=== PATIENT | female | born 1980 | race Caucasian/White ===

== ENCOUNTER 2016-09-24 18:01 | Emergency (ER) | payer OTHER ==
--- NOTE | 2016-09-24 20:48 | ED ORDER SUMMARY ---
..... Patient: GLORIA LI OrderSheet [facility] VisitID: [id number] [address] [place] [address] 36y, F Registration Date/Time: 09/24/2016 ORDER SHEET Weight: 56.6 kg (stated) Allergies: Penicillin GENERAL ORDERS: CBC w Diff Urgent (18:22 09/24/2016 HBivens A.R.N.P.) (Ack 18:23 KHoerner) (19:47 JBullard R.N.) BMP Urgent (18:22 09/24/2016 HBivens A.R.N.P.) (Ack 18:23 KHoerner) (19:47 JBullard R.N.) Serum Qualitative Urgent (18:22 09/24/2016 HBivens A.R.N.P.) (Ack 18:23 KHoerner) (19:47 JBullard R.N.) EKG - ER Stat (18:22 09/24/2016 HBivens A.R.N.P.) (Ack 18:23 KHoerner) (19:23 CHagerty ER Management Trainee Marketing) Vitals (20:45 09/24/2016 HBivens A.R.N.P.) (21:08 JBullard R.N.) MEDICATION ORDERS: - (Reglan 10mg im stat) (18:21 09/24/2016 HBivens A.R.N.P.) (Cancelled: Other19:07 HBivens A.R.N.P.) IV FLUIDS: IV NS : initial bolus 1000 mL (1000 mL/hr), then none - (NOW) (18:21 09/24/2016 HBivens A.R.N.P.) (19:47 JBullard R.N.) Toradol IV 30 mg (NOW) (18:09/24/2016 HBivens A.R.N.P.) (19:48 JBullard R.N.) Benadryl IV 25 mg (NOW) (18:21 09/24/2016 HBivens A.R.N.P.) (19:48 JBullard R.N.) IV Saline Lock (18:22 09/24/2016 HBivens A.R.N.P.) (19:47 Ailin Dietrich.N.) Reglan IV 10 mg (NOW) (19:07 09/24/2016 HBivens A.R.N.P.) (19:47 Ailin Dietrich.N.) ORDER SHEET NOTES: [Electronically signed by Ketan Pat R.N. (21:30 09/24/2016)] [Electronically signed by Kelsey MorrellRJuliaNJuliaPJulia (21:56 09/24/2016)] [Electronically locked/signed by Ketan Pat R.N. (21:30 09/24/2016)]
--- NOTE | 2016-09-24 20:48 | ED ORDER SUMMARY ---
..... Patient: GLORIA LI OrderSheet [facility] VisitID: [id number] [address] [place] [address] 36y, F Registration Date/Time: 09/24/2016 ORDER SHEET Weight: 56.6 kg (stated) Allergies: Penicillin GENERAL ORDERS: CBC w Diff Urgent (18:22 09/24/2016 HBivens A.R.N.P.) (Ack 18:23 KHoerner) (19:47 JBullard R.N.) BMP Urgent (18:22 09/24/2016 HBivens A.R.N.P.) (Ack 18:23 KHoerner) (19:47 JBullard R.N.) Serum Qualitative Urgent (18:22 09/24/2016 HBivens A.R.N.P.) (Ack 18:23 KHoerner) (19:47 JBullard R.N.) EKG - ER Stat (18:22 09/24/2016 HBivens A.R.N.P.) (Ack 18:23 KHoerner) (19:23 CHagerty 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) Vitals (20:45 09/24/2016 HBivens A.R.N.P.) (21:08 JBullard R.N.) MEDICATION ORDERS: - (Reglan 10mg im stat) (18:21 09/24/2016 HBivens A.R.N.P.) (Cancelled: Other19:07 HBivens A.R.N.P.) IV FLUIDS: IV NS : initial bolus 1000 mL (1000 mL/hr), then none - (NOW) (18:21 09/24/2016 HBivens A.R.N.P.) (19:47 JBullard R.N.) Toradol IV 30 mg (NOW) (18:09/24/2016 HBivens A.R.N.P.) (19:48 JBullard R.N.) Benadryl IV 25 mg (NOW) (18:21 09/24/2016 HBivens A.R.N.P.) (19:48 JBullard R.N.) IV Saline Lock (18:22 09/24/2016 HBivens A.R.N.P.) (19:47 Ailin Dietrich.N.) Reglan IV 10 mg (NOW) (19:07 09/24/2016 HBivens A.R.N.P.) (19:47 Ailin Dietrich.N.) ORDER SHEET NOTES: [Electronically signed by Ketan Pat R.N. (21:30 09/24/2016)] [Electronically signed by Kelsey MorrellRJuliaNJuliaPJulia (21:56 09/24/2016)] [Electronically locked/signed by Ketan Pat R.N. (21:30 09/24/2016)]
--- NOTE | 2016-09-24 20:48 | ED CLINICAL REPORT ---
Clinical Report - Physicians/Mid Levels [facility] [address] [place] [address] 09/24/2016 18:02 Patient: GLORIA LI Time Seen: 18:08; upon arrival, initial patient contact, initial documentation, patient care assumed. Arrived- By private vehicle. Historian- patient. HISTORY OF PRESENT ILLNESS Is still present. Chief Complaint: HEADACHE. This started about 4 hours ago. It is described as similar to previous headaches, "pain" and sharp. Located in the right temporal, frontal and left temporal region and region of the right eye and left eye. Located in the facial region. No neck pain. At its maximum, severity described as severe. When seen in the E.D., severity described as severe. Modifying factors: worsened by bright light. The patient has had mild photophobia of the right eye and left eye. There has been no eye redness or discharge, matting or foreign body sensation. She has had nausea. She has had vomiting. The vomiting has occurred several times. No bilious emesis, feculent emesis, blood-tinged emesis, coffee-grounds emesis or frankly bloody emesis. No unusually dark emesis. No preceding symptoms, blurred vision, numbness or weakness. 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 No recent travel. Similar symptoms previously: Chronically, as bad. Recent medical care: Not recently seen/assessed. REVIEW OF SYSTEMS No fever, sinus pressure, ear pain, sore throat or head injury. No chest pain or difficulty breathing. All systems otherwise negative, except as recorded above. PAST HISTORY See nurses notes. PROBLEMS: Mastitis. Pharyngitis. UTI - Urinary Tract Infection. Suicide Attempt. Mental Illness. MRSA Infection. Drug Poisoning. LNMP - Last Normal Menstrual Period. Depression. Anxiety Reaction. Bipolar Disorder. Migraine Headache. Ectopic . --18:12 Page Shin, RJuliaN. ADDITIONAL SURGERIES: Breast Augmentation. Dilatation & Curettage. --18:12 Page Shin R.N. SOCIAL HISTORY Light tobacco smoker. No alcohol use or drug use. No recent travel. Is a local resident. FAMILY HISTORY Negative. ADDITIONAL NOTES The nursing notes have been reviewed with agreement regarding the chief complaint, HPI, ROS, PMH and patient medications and allergies. PHYSICAL EXAM Vital Signs: 09/24/2016 18:10 BP: 139/89. HR: 137. RR: 16. O2 saturation: 99%. Temp: 98.3 F. Pain level now: 04/12. Have been reviewed as abnormal and appear to be correct. Blood pressure normal. Tachycardic. Respiratory rate normal. Temperature normal. Oxygen saturation normal. Appearance: Alert. No acute distress. Eyes: Pupils equal, round and reactive to light. Eyes normal inspection. ENT: Ears normal. Nose normal. Pharynx normal. Neck: Normal inspection. Neck supple. CVS: Heart rate / rhythm abnormal. Tachycardia (ventricular rate = 140). Heart sounds normal. Pulses normal. Respiratory: No respiratory distress. Breath sounds normal. Back: Normal inspection. Skin: Skin warm and dry. Normal skin color. No rash. Normal skin turgor. Extremities: Extremities exhibit normal ROM. No lower extremity edema. Neuro: Oriented X 3. Alert. Mood/affect normal. Speech normal. Cranial nerves normal (as tested). No cerebellar findings. No motor deficit. No sensory deficit. LABS, X-RAYS, AND EKG EKG: EKG time: (1919). No acute process. No acute ischemia. Normal EKG. Regular narrow-complex tachycardia (111). Sinus tachycardia. Normal EKG. The study has been interpreted contemporaneously by me (and dr gonzalez). Interpretation time: 1919. Laboratory Tests: Serum Qualitative: (MISSAEL: 09/24/2016 19:37) ( MsgRcvd 09/24/2016 20:29) Final results Test Result Flag Units (Reference) , SERUM NEGATIVE CBC w Diff: (MISSAEL: 09/24/2016 19:37) ( MsgRcvd 09/24/2016 20:16) Final results Test Result Flag Units (Reference) WHITE BLOOD COUNT 10.4 K/uL (4.5-11.5) RED BLOOD COUNT 4.10 M/uL (4.00-5.20) HEMOGLOBIN 12.8 gm/dL (12.0-16.0) HEMATOCRIT 37.7 % (36.0-46.0) MEAN CELL VOLUME 92 fL (80-100) MEAN CORPUSCULAR HGB 31 pg (26-34) MEAN CORPUSCULAR HGB CONC 34 g/dL (31-37) RED CELL DISTRIBUTION WIDTH 14.1 % (11.6-14.8) PLATELET COUNT 272 K/uL (150-400) NEUTROPHIL % 53.3 % (50-75) LYMPH % 39.7 % (25-40) MONO % 5.1 % (3-14) EOSINOPHIL % 1.6 % (0-4) BASOPHIL % 0.3 % (0-2) BMP: (MISSAEL: 09/24/2016 19:37) ( MsgRcvd 09/24/2016 20:27) Final results Test Result Flag Units (Reference) GLUCOSE 86 mg/dL (70-110) BUN 7 mg/dL (7-18) CREATININE 0.7 mg/dL (0.6-1.3) Estimated GFR >60 mL/min Estimated GFR- >60 mL/min Note: Persistent reduction over 3 months in eGFR<60 mL/min/1.73 m2 defines CKD. Patients with eGFR values>=60 mL/min/1.73 m2 may also have CKD if evidence ofpersistent proteinuria. Additional information may be foundat www.kidney.org. SODIUM 141 mmol/L (136-145) POTASSIUM 3.6 mmol/L (3.5-5.1) CHLORIDE 105 mmol/L (98-107) CARBON DIOXIDE 27 mmol/L (21-32) CALCIUM 8.3 L mg/dL (8.5-10.1) . PROGRESS AND PROCEDURES Course of Care: 19:55 09/24/16. pt has jorden for frequent ambien and xanax rx, consistently every month, see report for full details pt stated she felt much better and thanked me for the care. Patient counseled in person regarding the patient's stable condition, test results and diagnosis. 2042. Differential Diagnosis: I considered migraine, subarachnoid hemorrhage, intracranial bleed, vascular malformation, cerebral aneurysm, vascular dissection, vasculitis, temporal arteritis, encephalitis, brain abscess, sinusitis, influenza, viral syndrome, carbon monoxide exposure, hypoglycemia and trigeminal neuralgia as a possible cause of headache in this patient. This is a partial list of diagnoses considered. Other possible considerations: afib, aflutter, tachycardia. Above considerations are based on history, physical exam and laboratory data. Differential diagnosis was discussed with patient. Disposition: Discharged home in good and improved condition (20:48). Condition: good and stable. CLINICAL IMPRESSION Acute, poorly controlled headache. INSTRUCTIONS Warnings: GENERAL WARNINGS: Return or contact your physician immediately if your condition worsens or changes unexpectedly, if not improving as expected, or if other problems arise. SPECIFICALLY, return if you develop fever, vomiting, numbness, weakness, difficulty thinking, visual disturbances, fainting or extreme fatigue. Prescription Medications: Zofran 4 mg: Take 1 orally every six hours as needed for nausea/vomiting. Dispense ten (10). No refills. Substitution is permissible. Fioricet: Take 1-2 orally every 4 hours as needed for headache. Dispense twenty (20). No refills. Substitution is permissible. Follow-up: Follow up with your doctor in about three days as needed. Call for an appointment. Summary of care provided to patient. Understanding of the discharge instructions verbalized by patient. (Electronically signed by Kelsey Morrell A.R.N.P. 09/24/2016 21:56)
--- NOTE | 2016-09-24 20:48 | ED NURSING NOTES ---
Clinical Report - Nurses [facility] [address] [place] [address] 09/24/2016 18:02 [id number] Triage time 18:09 Sep 24 2016. Acuity: LEVEL 4. Chief Complaint: (Pressure behind eyes, nausea/Vomiting). 18:17 09/24/16. SEPSIS SCREEN: Sepsis Screen. Negative (no infection suspected/documented). LIZZIE COMA SCORE: [place] Coma Scale: 15- eyes open spontaneously (4); best verbal response- oriented x 4 (5); best motor response- obeys commands (6). --18:17 Page Shin R.N. 18:10 09/24/16. BP: 139/89 (regular adult cuff) taken on the left arm, while sitting. HR: 137. RR: 16. O2 saturation: 99% on room air. Temp: 98.3 F (oral). Pain level now: 04/12. --18:17 Page Shin R.N. Weight: 56.6 kg stated. Height/Length: 62 inches Per Patient. BMI: 22.8. --18:13 Page Shin R.N. Medications LaMICtal Oral. --18:12 Page Shin R.N. Imitrex Oral (Tablet 100 mg) 1 tablet, PRN. --18:12 Page Shin R.N. Allergies Penicillin. --18:12 Page Shin R.N. History Historian: patient. Accompanied by family. Primary physician (NI PAYAN). This started just prior to arrival Imitrex 100mg x3. Onset. (4 hours ago). She has had nausea and vomiting. PAST MEDICAL HX: Headaches. Immunizations: up-to-date. Last normal menstrual period- Sep 24, 2016. SOCIAL HX: Current every day light tobacco smoker- less than 1/2 a pack per day. No alcohol use or drug use. ABUSE ASSESSMENT: No report of abuse. FALL RISK ASSESSMENT: Fall risk assessment completed. No fall risk identified. NUTRITIONAL RISK ASSESSMENT: The nutritional risk assessment revealed no deficiencies. FUNCTIONAL ASSESSMENT: Functional assessment: no impairments noted. LEARNING NEEDS ASSESSMENT: The learning needs assessment revealed no barriers. SKIN INTEGRITY ASSESSMENT: Skin integrity risk assessment completed. No skin integrity risk identified. --18:17 Page Shin R.N. PROBLEMS: Mastitis. Pharyngitis. UTI - Urinary Tract Infection. Suicide Attempt. Mental Illness. MRSA Infection. Drug Poisoning. LNMP - Last Normal Menstrual Period. Depression. Anxiety Reaction. Bipolar Disorder. Migraine Headache. Ectopic . --18:12 Page Shin R.N. ADDITIONAL SURGERIES: Breast Augmentation. Dilatation & Curettage. --18:12 Page Shin R.N. Interventions ID band on patient. To treatment room. --18:17 Page Shin R.N. PHYSICAL ASSESSMENT 18:17 09/24/16. Ambulatory to room. GENERAL / NEURO / PSYCH: Appears in no acute distress. --18:17 Page Shin R.N. NURSING PROGRESS NOTES 18:09/24/16. Head of bed elevated. Reassurance given. Lights dimmed. Two patient identifiers checked. Call light placed in reach. Side rails up x 1. Bed placed in lowest position. Brakes of bed on. Patient ready for evaluation- chart flagged. --18:17 Page Shin R.N. 19:22 09/24/16. Care transferred and report given (Ketan). --19:22 Page Shin R.N. EKG time: (1919). EKG was ordered, performed by a tech and shown to the ED physician. --19:24 Samy Atkinson, ER Industrial Manufacturing Technician 19:40 09/24/2016 Site #1 started via IV in the left hand with an 22g angiocath, with aseptic technique and good blood return; one attempt. Saline lock flushed with 10 mL saline. --19:43 Yamini Richardson R.N. 19:47 09/24/2016 Started bag #1 1000 mL IV Fluids IV NS (Saline); bolus of 1000 mL wide open via site #1. Allergies verified and confirmed 5 rights. IV patency established. IV site checked: no pain, redness, or swelling. IV flushed thoroughly pre- and post-medication administration. --19:47 Ketan Pat R.N. 19:47 09/24/2016 Reglan (Metoclopramide HCl) IVP 10 mg given. via site #1. Allergies verified and confirmed 5 rights. IV patency established. IV site checked: no pain, redness, or swelling. IV flushed thoroughly pre- and post-medication administration. --19:47 Ketan Pat R.N. 19:48 09/24/2016 Benadryl (DiphenhydrAMINE HCl) IVP 25 mg given. via site #1. Allergies verified, confirmed 5 rights and sedative warning given to the patient. IV patency established. IV site checked: no pain, redness, or swelling. IV flushed thoroughly pre- and post-medication administration. --19:48 Ketan Pat R.N. 19:48 09/24/2016 Toradol IVP 30 mg given. via site #1. Allergies verified and confirmed 5 rights. IV patency established. IV site checked: no pain, redness, or swelling. IV flushed thoroughly pre- and post-medication administration. --19:48 Ketan Pat R.N. DISPOSITION / DISCHARGE Departure time: 2129. Condition at departure: improved. No learning barriers present. Discharge instructions provided and reviewed with the patient. Reviewed warnings. Reviewed medication(s). Treatments reviewed. Reviewed referrals. Patient verbalized understanding. Written instructions provided in Qatari. The patient was discharged by the physician animal assistant. She was discharged home and unaccompanied at time of discharge. She left the Emergency Department ambulatory and via private vehicle. Patient driving. --21:12 Ketan Pat R.N. 21:08 09/24/16. BP: 109/57. HR: 88. RR: 16. O2 saturation: 100%. Temp: 98 F. Pain level now 10/10. --21:12 Ketan Pat R.N. Locked/Released at 09/24/2016 21:30 by Ketan Pat R.N.
--- NOTE | 2016-09-24 20:48 | ED NURSING NOTES ---
Clinical Report - Nurses [facility] [address] [place] [address] 09/24/2016 18:02 [id number] Triage time 18:09 Sep 24 2016. Acuity: LEVEL 4. Chief Complaint: (Pressure behind eyes, nausea/Vomiting). 18:17 09/24/16. SEPSIS SCREEN: Sepsis Screen. Negative (no infection suspected/documented). LIZZIE COMA SCORE: [place] Coma Scale: 15- eyes open spontaneously (4); best verbal response- oriented x 4 (5); best motor response- obeys commands (6). --18:17 Page Shin R.N. 18:10 09/24/16. BP: 139/89 (regular adult cuff) taken on the left arm, while sitting. HR: 137. RR: 16. O2 saturation: 99% on room air. Temp: 98.3 F (oral). Pain level now: 04/12. --18:17 Page Shin R.N. Weight: 56.6 kg stated. Height/Length: 62 inches Per Patient. BMI: 22.8. --18:13 Page Shin R.N. Medications LaMICtal Oral. --18:12 Page Shin R.N. Imitrex Oral (Tablet 100 mg) 1 tablet, PRN. --18:12 Page Shin R.N. Allergies Penicillin. --18:12 Page Shin R.N. History Historian: patient. Accompanied by family. Primary physician (NI PAYAN). This started just prior to arrival Imitrex 100mg x3. Onset. (4 hours ago). She has had nausea and vomiting. PAST MEDICAL HX: Headaches. Immunizations: up-to-date. Last normal menstrual period- Sep 24, 2016. SOCIAL HX: Current every day light tobacco smoker- less than 1/2 a pack per day. No alcohol use or drug use. ABUSE ASSESSMENT: No report of abuse. FALL RISK ASSESSMENT: Fall risk assessment completed. No fall risk identified. NUTRITIONAL RISK ASSESSMENT: The nutritional risk assessment revealed no deficiencies. FUNCTIONAL ASSESSMENT: Functional assessment: no impairments noted. LEARNING NEEDS ASSESSMENT: The learning needs assessment revealed no barriers. SKIN INTEGRITY ASSESSMENT: Skin integrity risk assessment completed. No skin integrity risk identified. --18:17 Page Shin R.N. PROBLEMS: Mastitis. Pharyngitis. UTI - Urinary Tract Infection. Suicide Attempt. Mental Illness. MRSA Infection. Drug Poisoning. LNMP - Last Normal Menstrual Period. Depression. Anxiety Reaction. Bipolar Disorder. Migraine Headache. Ectopic . --18:12 Page Shin R.N. ADDITIONAL SURGERIES: Breast Augmentation. Dilatation & Curettage. --18:12 Page Shin R.N. Interventions ID band on patient. To treatment room. --18:17 Page Shin R.N. PHYSICAL ASSESSMENT 18:17 09/24/16. Ambulatory to room. GENERAL / NEURO / PSYCH: Appears in no acute distress. --18:17 Page Shin R.N. NURSING PROGRESS NOTES 18:09/24/16. Head of bed elevated. Reassurance given. Lights dimmed. Two patient identifiers checked. Call light placed in reach. Side rails up x 1. Bed placed in lowest position. Brakes of bed on. Patient ready for evaluation- chart flagged. --18:17 Page Shin R.N. 19:22 09/24/16. Care transferred and report given (Ketan). --19:22 Page Shin R.N. EKG time: (1919). EKG was ordered, performed by a tech and shown to the ED physician. --19:24 Samy Atkinson, ER Gum Maker 19:40 09/24/2016 Site #1 started via IV in the left hand with an 22g angiocath, with aseptic technique and good blood return; one attempt. Saline lock flushed with 10 mL saline. --19:43 Yamini Richardson R.N. 19:47 09/24/2016 Started bag #1 1000 mL IV Fluids IV NS (Saline); bolus of 1000 mL wide open via site #1. Allergies verified and confirmed 5 rights. IV patency established. IV site checked: no pain, redness, or swelling. IV flushed thoroughly pre- and post-medication administration. --19:47 Ketan Pat R.N. 19:47 09/24/2016 Reglan (Metoclopramide HCl) IVP 10 mg given. via site #1. Allergies verified and confirmed 5 rights. IV patency established. IV site checked: no pain, redness, or swelling. IV flushed thoroughly pre- and post-medication administration. --19:47 Ketan Pat R.N. 19:48 09/24/2016 Benadryl (DiphenhydrAMINE HCl) IVP 25 mg given. via site #1. Allergies verified, confirmed 5 rights and sedative warning given to the patient. IV patency established. IV site checked: no pain, redness, or swelling. IV flushed thoroughly pre- and post-medication administration. --19:48 Ketan Pat R.N. 19:48 09/24/2016 Toradol IVP 30 mg given. via site #1. Allergies verified and confirmed 5 rights. IV patency established. IV site checked: no pain, redness, or swelling. IV flushed thoroughly pre- and post-medication administration. --19:48 Ketan Pat R.N. DISPOSITION / DISCHARGE Departure time: 2129. Condition at departure: improved. No learning barriers present. Discharge instructions provided and reviewed with the patient. Reviewed warnings. Reviewed medication(s). Treatments reviewed. Reviewed referrals. Patient verbalized understanding. Written instructions provided in Maltese. The patient was discharged by the physician bindery assistant. She was discharged home and unaccompanied at time of discharge. She left the Emergency Department ambulatory and via private vehicle. Patient driving. --21:12 Ketan Pat R.N. 21:08 09/24/16. BP: 109/57. HR: 88. RR: 16. O2 saturation: 100%. Temp: 98 F. Pain level now 10/10. --21:12 Ketan Pat R.N. Locked/Released at 09/24/2016 21:30 by Ketan Pat R.N.
--- NOTE | 2016-09-24 21:57 | ED MED RECONCILIATION SUMMARY ---
Patient: GLORIA LI Medication Reconciliation Report [facility] VisitID: [id number] [address] [place] [address] 36y, F Registration Date/Time: 09/24/2016 Weight: 56.6 kg Height/Length: 62 in. BMI: 22.8 ALLERGIES: Penicillin The patient's Home Medications are listed below: THE FOLLOWING MEDICATIONS NEED TO BE RECONCILED: Imitrex Oral (100 mg) 1 tablet, PRN LaMICtal Oral The source(s) of the original Home Medication information: Not obtained. The following Medications were given to the patient in the Emergency Department: IV NS IV Fluids bolus 1000 mL wide open, administered: 09/24/2016 7:47:00 PM Reglan [IVP] IVP 10 mg, administered: 09/24/2016 7:47:00 PM Benadryl [IVP] IVP 25 mg, administered: 09/24/2016 7:48:00 PM Toradol [IVP] IVP 30 mg, administered: 09/24/2016 7:48:00 PM The following Medications were prescribed to the patient: Zofran 4 mg: Take 1 orally every six hours as needed for nausea/vomiting. Dispense ten (10). No refills. Substitution is permissible. -- Kelsey Morrell A.R.N.P. Fioricet: Take 1-2 orally every 4 hours as needed for headache. Dispense twenty (20). No refills. Substitution is permissible. -- Kelsey Morrell A.R.N.P.
--- NOTE | 2016-09-24 21:57 | ED MAR SUMMARY ---
..... Medication Administration Record [facility] [address] [address] Patient: GLORIA LI Visit ID: [id number] 36y, F Weight: 56.6 kg Height/Length: 62 in BMI: 22.8 ALLERGIES: Penicillin Start 19:47 09/24/2016 Ketan Pat R.N. Medication Administered: IV NS (SALINE), Dose: IV Fluids, Bolus: 1000 mL wide open, Dispensed: 1000 mL bag, Site: #1 left hand. Medication Ordered: IV NS : initial bolus 1000 mL (1000 mL/hr), then none - (NOW). Given 19:47 09/24/2016 Ketan Pat R.N. Medication Administered: REGLAN [IVP] (METOCLOPRAMIDE HCL), Dose: 10 mg IVP, Site: #1 left hand. Medication Ordered: Reglan IV 10 mg (NOW). Given 19:48 09/24/2016 Ketan Pat R.N. Medication Administered: TORADOL [IVP], Dose: 30 mg IVP, Site: #1 left hand. Medication Ordered: Toradol IV 30 mg (NOW). Given 19:48 09/24/2016 Ketan Pat R.N. Medication Administered: BENADRYL [IVP] (DIPHENHYDRAMINE HCL), Dose: 25 mg IVP, Site: #1 left hand. Medication Ordered: Benadryl IV 25 mg (NOW).
--- NOTE | 2016-09-24 21:57 | ED MAR SUMMARY ---
..... Medication Administration Record [facility] [address] [place] [address] Patient: GLORIA LI Visit ID: [id number] 36y, F Weight: 56.6 kg Height/Length: 62 in BMI: 22.8 ALLERGIES: Penicillin Start 19:47 09/24/2016 Ketan Pat R.N. Medication Administered: IV NS (SALINE), Dose: IV Fluids, Bolus: 1000 mL wide open, Dispensed: 1000 mL bag, Site: #1 left hand. Medication Ordered: IV NS : initial bolus 1000 mL (1000 mL/hr), then none - (NOW). Given 19:47 09/24/2016 Ketan Pat R.N. Medication Administered: REGLAN [IVP] (METOCLOPRAMIDE HCL), Dose: 10 mg IVP, Site: #1 left hand. Medication Ordered: Reglan IV 10 mg (NOW). Given 19:48 09/24/2016 Ketan Pat R.N. Medication Administered: TORADOL [IVP], Dose: 30 mg IVP, Site: #1 left hand. Medication Ordered: Toradol IV 30 mg (NOW). Given 19:48 09/24/2016 Ketan Pat R.N. Medication Administered: BENADRYL [IVP] (DIPHENHYDRAMINE HCL), Dose: 25 mg IVP, Site: #1 left hand. Medication Ordered: Benadryl IV 25 mg (NOW).
--- NOTE | 2016-09-24 21:57 | ED MED RECONCILIATION SUMMARY ---
Patient: GLORIA LI Medication Reconciliation Report [facility] VisitID: [id number] [address] [place] [address] 36y, F Registration Date/Time: 09/24/2016 Weight: 56.6 kg Height/Length: 62 in. BMI: 22.8 ALLERGIES: Penicillin The patient's Home Medications are listed below: THE FOLLOWING MEDICATIONS NEED TO BE RECONCILED: Imitrex Oral (100 mg) 1 tablet, PRN LaMICtal Oral The source(s) of the original Home Medication information: Not obtained. The following Medications were given to the patient in the Emergency Department: IV NS IV Fluids bolus 1000 mL wide open, administered: 09/24/2016 7:47:00 PM Reglan [IVP] IVP 10 mg, administered: 09/24/2016 7:47:00 PM Benadryl [IVP] IVP 25 mg, administered: 09/24/2016 7:48:00 PM Toradol [IVP] IVP 30 mg, administered: 09/24/2016 7:48:00 PM The following Medications were prescribed to the patient: Zofran 4 mg: Take 1 orally every six hours as needed for nausea/vomiting. Dispense ten (10). No refills. Substitution is permissible. -- Kelsey Morrell A.R.N.P. Fioricet: Take 1-2 orally every 4 hours as needed for headache. Dispense twenty (20). No refills. Substitution is permissible. -- Kelsey Morrell A.R.N.P.
--- NOTE | 2016-09-24 21:57 | ED DISCHARGE INSTRUCTIONS ---
Patient: GLORIA LI General Instructions [facility] VisitID: [id number] [address] [place] [address] 36y, F Registration Date/Time: 09/24/2016 Acute, poorly controlled headache. INSTRUCTIONS Warnings: GENERAL WARNINGS: Return or contact your physician immediately if your condition worsens or changes unexpectedly, if not improving as expected, or if other problems arise. SPECIFICALLY, return if you develop fever, vomiting, numbness, weakness, difficulty thinking, visual disturbances, fainting or extreme fatigue. Prescription Medications: Zofran 4 mg: Take 1 orally every six hours as needed for nausea/vomiting. Dispense ten (10). No refills. Substitution is permissible. Fioricet: Take 1-2 orally every 4 hours as needed for headache. Dispense twenty (20). No refills. Substitution is permissible. Follow-up: Follow up with your doctor in about three days as needed. Call for an appointment. Summary of care provided to patient. Understanding of the discharge instructions verbalized by patient. ADDITIONAL INFORMATION Headache [Unspecified] The cause of your headache today is not clear, but it does not appear to be the sign of any serious illness. Under stress, some people tense the muscles of their shoulder, neck and scalp without knowing it. If this condition lasts long enough, a TENSION HEADACHE can occur. A MIGRAINE HEADACHE is caused by changes in blood flow to the brain. A migraine attack may be triggered by emotional stress, hormone changes during the menstrual cycle, oral contraceptives, alcohol use, certain foods containing tyramine, eye strain, weather changes, missing meals, lack of sleep or oversleeping. Other causes of headache include a viral illness with high fever, head injury with concussion, sinus, ear or throat infection, dental pain and TMJ (jaw joint) pain. More serious but less common causes of headache include stroke, brain hemorrhage, brain tumor, meningitis and encephalitis. Home Care: If you were given pain medicine for this headache, do not drive yourself home. Arrange for a ride, instead. When you get home, try to sleep. You should feel much better when you wake up. Apply heat to the back of your neck to relieve neck muscle spasm. Migraine headaches may respond best to an ice pack on the forehead or at the base of the skull. If you are having nausea or vomiting, follow a light diet until your headache is relieved. If you have a migraine type headache, use sunglasses when in the daylight or around bright indoor lighting until symptoms improve. Bright glaring light can worsen this kind of headache. Follow Up with your doctor if the headache is not better within the next 24 hours. If you have frequent headaches you should discuss a treatment plan with your primary care doctor. By being aware of the earliest signs of headache, and starting treatment right away, you may be able to stop the pain yourself. Get Prompt Medical Attention if any of the following occur: Worsening of your head pain or no improvement within 24 hours Repeated vomiting (unable to keep liquids down) Fever of 100.4F (38C) or higher, or as directed by your healthcare provider Stiff neck Extreme drowsiness, confusion or fainting Dizziness, vertigo (dizziness with spinning sensation) Weakness of an arm or leg or one side of the face Difficulty with speech or vision Ondansetron Oral disintegrating tablet What is this medicine? ONDANSETRON (on ISABEL se puhong) is used to treat nausea and vomiting caused by chemotherapy. It is also used to prevent or treat nausea and vomiting after surgery. How should I use this medicine? These tablets are made to dissolve in the mouth. Do not try to push the tablet through the foil backing. With dry hands, peel away the foil backing and gently remove the tablet. Place the tablet in the mouth and allow it to dissolve, then swallow. While you may take these tablets with water, it is not necessary to do so. Talk to your renewable energy project manager regarding the use of this medicine in children. Special care may be needed. What side effects may I notice from receiving this medicine? Side effects that you should report to your doctor or health medicare insurance specialist as soon as possible: allergic reactions like skin rash, itching or hives, swelling of the face, lips, or tongue breathing problems dizziness fast or irregular heartbeat feeling faint or lightheaded, falls fever and chills swelling of the hands and feet tightness in the chest Side effects that usually do not require medical attention (report to your doctor or health medicare insurance specialist if they continue or are bothersome): constipation or diarrhea headache What may interact with this medicine? Do not take this medicine with any of the following medications: -apomorphine -cisapride -dofetilide -dronedarone -pimozide -thioridazine -ziprasidone This medicine may also interact with the following medications: -carbamazepine -phenytoin -rifampicin -tramadol -other medicines that prolong the QT interval (cause an abnormal heart rhythm) What if I miss a dose? If you miss a dose, take it as soon as you can. If it is almost time for your next dose, take only that dose. Do not take double or extra doses. Where should I keep my medicine? Keep out of the reach of children. Store between 2 and 30 degrees C (36 and 86 degrees F). Throw away any unused medicine after the expiration date. What should I tell my health care provider before I take this medicine? They need to know if you have any of these conditions: heart disease history of irregular heartbeat liver disease low levels of magnesium or potassium in the blood an unusual or allergic reaction to ondansetron, granisetron, other medicines, foods, dyes, or preservatives or trying to get breast-feeding What should I watch for while using this medicine? Check with your doctor or health medicare insurance specialist as soon as you can if you have any sign of an allergic reaction. Butalbital, Acetaminophen, Caffeine Oral tablet What is this medicine? ACETAMINOPHEN; BUTALBITAL; CAFFEINE (a set a PATRICIA sabrina fen; byoo DILCIA bi dilcia; KAF een) is a pain reliever. It is used to treat tension headaches. How should I use this medicine? Take this medicine by mouth with a full glass of water. Follow the directions on the prescription label. If the medicine upsets your stomach, take the medicine with food or milk. Do not take more than you are told to take. Talk to your renewable energy project manager regarding the use of this medicine in children. Special care may be needed. What side effects may I notice from receiving this medicine? Side effects that you should report to your doctor or health medicare insurance specialist as soon as possible: allergic reactions like skin rash, itching or hives, swelling of the face, lips, or tongue breathing problems confusion feeling faint or lightheaded, falls redness, blistering, peeling or loosening of the skin, including inside the mouth seizure stomach pain yellowing of the eyes or skin Side effects that usually do not require medical attention (report to your doctor or health medicare insurance specialist if they continue or are bothersome): constipation nausea, vomiting What may interact with this medicine? alcohol or medicines that contain alcohol antidepressants, especially MAOIs like isocarboxazid, phenelzine, tranylcypromine, and selegiline antihistamines benzodiazepines carbamazepine isoniazid medicines for pain like pentazocine, buprenorphine, butorphanol, nalbuphine, tramadol, and propoxyphene muscle relaxants naltrexone phenobarbital, phenytoin, and fosphenytoin phenothiazines like perphenazine, thioridazine, chlorpromazine, mesoridazine, fluphenazine, prochlorperazine, promazine, and trifluoperazine voriconazole What if I miss a dose? If you miss a dose, take it as soon as you can. If it is almost time for your next dose, take only that dose. Do not take double or extra doses. Where should I keep my medicine? Keep out of the reach of children. This medicine can be abused. Keep your medicine in a safe place to protect it from theft. Do not share this medicine with anyone. Selling or giving away this medicine is dangerous and against the law. Store at room temperature between 15 and 30 degrees C (59 and 86 degrees F). Keep container tightly closed. Protect from light. Throw away any unused medicine after the expiration date. What should I tell my health care provider before I take this medicine? They need to know if you have any of these conditions: drink more than 3 alcohol-containing drinks per day drug abuse or addiction heart or circulation problems kidney disease or problems going to the bathroom liver disease lung disease, asthma, or breathing problems porphyria an unusual or allergic reaction to acetaminophen, butalbital or other barbiturates, caffeine, other medicines, foods, dyes, or preservatives or trying to get breast-feeding What should I watch for while using this medicine? Tell your doctor or health medicare insurance specialist if your pain does not go away, if it gets worse, or if you have new or a different type of pain. You may develop tolerance to the medicine. Tolerance means that you will need a higher dose of the medicine for pain relief. Tolerance is normal and is expected if you take the medicine for a long time. Do not suddenly stop taking your medicine because you may develop a severe reaction. Your body becomes used to the medicine. This does NOT mean you are addicted. Addiction is a behavior related to getting and using a drug for a non-medical reason. If you have pain, you have a medical reason to take pain medicine. Your doctor will tell you how much medicine to take. If your doctor wants you to stop the medicine, the dose will be slowly lowered over time to avoid any side effects. You may get drowsy or dizzy when you first start taking the medicine or change doses. Do not drive, use machinery, or do anything that may be dangerous until you know how the medicine affects you. Stand or sit up slowly. Do not take other medicines that contain acetaminophen with this medicine. Always read labels carefully. If you have questions, ask your doctor or pharmacist. If you take too much acetaminophen get medical help right away. Too much acetaminophen can be very dangerous and cause liver damage. Even if you do not have symptoms, it is important to get help right away. You have been given the following additional information: Headache, Unspecified Ondansetron Oral disintegrating tablet Butalbital, Acetaminophen, Caffeine Oral tablet (Electronically signed by Kelsey Morrell A.R.N.P. 09/24/2016 21:56)
== END 2016-09-24 21:15 | disposition home or self-care (01) ==
LOC: ED SRH 18:01
DX: G44.89 Other headache syndrome (principal); R11.2 Nausea with vomiting, unspecified
CPT/HCPCS: 90047; 95059; 98428

== ENCOUNTER 2016-10-12 18:22 | Emergency (ER) | payer OTHER ==
--- NOTE | 2016-10-12 19:22 | ED ORDER SUMMARY ---
..... Patient: GLORIA LI OrderSheet [facility] VisitID: [id number] [address] [place] [address] 36y, F Registration Date/Time: 10/12/2016 ORDER SHEET Weight: 61.2 kg (stated) Allergies: Penicillin GENERAL ORDERS: Culture, Strep Screen Urgent (18:52 10/12/2016 Earnest ParisAJulia-C) (Ack 19:00 Betzaida) (19:23 Indra) MEDICATION ORDERS: Dexamethasone PO 8 mg (NOW) (19:11 10/12/2016 Earnest Aguirre) (Ack 19:24 SRoberts R.N.) (19:33 Garrett R.N.) IV FLUIDS: ORDER SHEET NOTES: [Electronically signed by Rosaura Narayan P.A.-C (19:32 10/12/2016)] [Electronically signed by Monae Cabrera R.N. (19:40 10/12/2016)] [Electronically locked/signed by Monae Cabrera R.N. (19:40 10/12/2016)]
--- NOTE | 2016-10-12 19:22 | ED CLINICAL REPORT ---
Clinical Report - Physicians/Mid Levels [facility] [address] [place] [address] 10/12/2016 18:24 Patient: GLORIA LI Time Seen: 19:30 Oct 12 2016. Arrived- By private vehicle. Historian- patient. HISTORY OF PRESENT ILLNESS Chief Complaint: SORE THROAT. This started today and is still present. Pain described as mild. The patient has had a sore throat. (Patient with sore throat, dry cough irritation to the posterior throat. Denies fevers or chills. 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 Denies any nausea vomiting or diarrhea. Denies productive cough.). Recent medical care: Not recently seen/assessed. REVIEW OF SYSTEMS No fever, nausea or abdominal pain. All systems otherwise negative, except as recorded above. SOCIAL HISTORY Smoker- current status unknown. No drug use. ADDITIONAL NOTES The nursing notes have been reviewed. PHYSICAL EXAM Vital Signs: 10/12/2016 18:33 BP: 124/77. HR: 103. RR: 20. O2 saturation: 98%. Temp: 98.6 F. Pain level now: 5/10. Appearance: Alert. Head: Normal external inspection. ENT: Ears normal. Nose normal. Pharynx normal. Lips normal. Gums normal. No trismus present. Uvula midline. No tonsillar exudate. Neck: Trachea midline. No adenopathy. Thyroid normal. CVS: Normal heart rate and rhythm. Heart sounds normal. No cardiac murmur. There is no decreased capillary refill. Respiratory: No respiratory distress. Breath sounds normal. Abdomen: Soft. No obesity or abdominal tenderness. Extremities: Extremities nontender. Neuro: Oriented X 3. LABS, X-RAYS, AND EKG Laboratory Tests: Culture, Strep Screen: (MISSAEL: 10/12/2016 18:50) ( MsgRcvd 10/12/2016 19:07) Final results Test Result Flag Units (Reference) RAPID STREP SCREEN - THROAT DATE: 10/12/16 NEGATIVE SCREEN: RAPID STREP SCREEN NEGATIVE; CONFIRMATION TO FOLLOW . PROGRESS AND PROCEDURES Course of Care: Patient in the ER is afebrile, no lymphadenopathy, rapid strep negative. At this time given steroids for inflammatory process,. Uvula is midline. No difficulty with speech or respirations. Patient is stable. Symptoms better. Patient/family counseled. Disposition: Discharged. Condition: good. CLINICAL IMPRESSION Acute pharyngitis INSTRUCTIONS Drink plenty of fluids. (warm salt water rinses). OTC Medications: Take ibuprofen (Advil, Nuprin, etc.) according to label instructions. Available over the counter. Acetaminophen (available over the counter): take according to label instructions. Understanding of the discharge instructions verbalized by patient. (Electronically signed by Rosaura Narayan P.A.-C 10/12/2016 19:32)
--- NOTE | 2016-10-12 19:22 | ED NURSING NOTES ---
Clinical Report - Nurses [facility] [address] [place] [address] 10/12/2016 18:24 Patient: GLORIA LI TRIAGE Triage time 18:33. Acuity: LEVEL 3. Chief Complaint: SORE THROAT. Alert. No acute distress. --18:46 Monae Cabrera R.N. 18:32 10/12/16. BP: 124/77. HR: 103. RR: 20. O2 saturation: 98%. Temp: 98.6 F. Pain level now: 12/10. --18:46 Monae Cabrera R.N. Weight: 61.2 kg stated. Height/Length: 64 inches Per Patient. BMI: 23.2. --18:44 Monae Cabrera R.N. Medications Imitrex Oral (Tablet 100 mg) 1 tablet, PRN. LaMICtal Oral. --18:38 Monae Cabrera R.N. Zofran Oral 4 mg, PRN. --18:38 Monae Cabrera R.N. Fioricet Oral 1 tablet, as needed. --18:38 Monae Cabrera R.N. Xanax Oral 0.5 mg, at bedtime. --18:39 Monae Cabrera R.N. Medication/allergy information source: the patient. --18:46 Monae Cabrera R.N. Allergies Penicillin. --18:38 Monae Cabrera R.N. History Arrived by private vehicle. Historian: patient. 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 This started today. 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 She has had hoarseness. 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 PAST MEDICAL HX: Immunizations: up-to-date. Last normal menstrual period- Sep 24. SOCIAL HX: Light tobacco smoker (cigarette)- less than 1/2 a pack per day. Patient refuses to answer tobacco use questions. No alcohol use or drug use. FALL RISK ASSESSMENT: Fall risk assessment completed. No fall risk identified. NUTRITIONAL RISK ASSESSMENT: The nutritional risk assessment revealed no deficiencies. FUNCTIONAL ASSESSMENT: Functional assessment: no impairments noted. LEARNING NEEDS ASSESSMENT: The learning needs assessment revealed no barriers. SKIN INTEGRITY ASSESSMENT: Skin integrity risk assessment completed. No skin integrity risk identified. --18:46 Monae Cabrera R.N. PROBLEMS: Throat, sore . Headache. Mastitis. Pharyngitis. UTI - Urinary Tract Infection. Suicide Attempt. Mental Illness. MRSA Infection. Drug Poisoning. LNMP - Last Normal Menstrual Period. Depression. Anxiety Reaction. Bipolar Disorder. Migraine Headache. Ectopic . --18:40 Monae Cabrera R.N. ADDITIONAL SURGERIES: Breast Augmentation. Dilatation & Curettage. --18:40 Monae Cabrera R.N. Interventions ID band on patient. To room. --18:46 Monae Cabrera R.N. PHYSICAL ASSESSMENT <<STRICKEN ENTRY-- Ambulatory to room. Patient gowned. GENERAL / NEURO / PSYCH: Alert. Appears in pain and anxious. HEENT: Pharyngeal erythema. Mucous membranes are pink. RESPIRATORY: Respirations not labored. CVS: Capillary refill less than 2 seconds. SKIN: Skin is warm and dry. Normal skin turgor. --18:47 Monae Cabrera R.N. --END STRIKE>> Correction --18:47 Monae Cabrera R.N. Ambulatory to room. Patient gowned. GENERAL / NEURO / PSYCH: Alert. Appears in pain and anxious. HEENT: Hoarse voice. ( dry cough). Mucous membranes are pink. RESPIRATORY: Respirations not labored. CVS: Capillary refill less than 2 seconds. SKIN: Skin is warm and dry. Normal skin turgor. --18:48 Monae Cabrera R.N. NURSING PROGRESS NOTES Patient gowned. Head of bed elevated. Two patient identifiers checked. Call light placed in reach. Side rails up x 1. Bed placed in lowest position. Brakes of bed on. Patient ready for evaluation. --18:48 Monae Cabrera R.N. 18:55. Patient ID band checked for patient name: patient confirmed. Throat swab obtained for rapid strep; labeled in the presence of the patient and sent to lab. --19:05 Monae Cabrera R.N. 19:25 10/12/2016 Dexamethasone (Dexamethasone) PO 8 mg given. Allergies verified and confirmed 5 rights. --19:33 Monae Cabrera R.N. DISPOSITION / DISCHARGE Condition at departure: unchanged. No learning barriers present. Discharge instructions provided and reviewed with the patient. Reviewed medication(s) side effects, precautions, dosing and course information. Prescription(s) given to the patient. Patient verbalized understanding. Written instructions provided in Panamanian. The patient was discharged home and accompanied by sas bi developer. She left the Emergency Department ambulatory and via private vehicle. Tapeman driving. Medication list reviewed and validated. --19:40 Monae Cabrera R.N. 19:38 10/12/16. BP: 126/79. HR: 70. RR: 20. O2 saturation: 98%. Temp: deferred. Pain level now: 12/10. 18:32 10/12/16. BP: 124/77. HR: 103. RR: 20. O2 saturation: 98%. Temp: 98.6 F. Pain level now: 12/10. --19:40 Monae Cabrera R.N. Locked/Released at 10/12/2016 19:40 by Monae Cabrera R.N.
--- NOTE | 2016-10-12 19:22 | ED ORDER SUMMARY ---
..... Patient: GLORIA LI OrderSheet [facility] VisitID: [id number] [address] [place] [address] 36y, F Registration Date/Time: 10/12/2016 ORDER SHEET Weight: 61.2 kg (stated) Allergies: Penicillin GENERAL ORDERS: Culture, Strep Screen Urgent (18:52 10/12/2016 Earnest ParisAJulia-C) (Ack 19:00 Betzaida) (19:23 Indra) MEDICATION ORDERS: Dexamethasone PO 8 mg (NOW) (19:11 10/12/2016 Earnest Aguirre) (Ack 19:24 SRoberts R.N.) (19:33 Garrett R.N.) IV FLUIDS: ORDER SHEET NOTES: [Electronically signed by Rosaura Narayan P.A.-C (19:32 10/12/2016)] [Electronically signed by Monae Cabrera R.N. (19:40 10/12/2016)] [Electronically locked/signed by Monae Cabrera R.N. (19:40 10/12/2016)]
--- NOTE | 2016-10-12 19:22 | ED CLINICAL REPORT ---
Clinical Report - Physicians/Mid Levels [facility] [address] [place] [address] 10/12/2016 18:24 Patient: GLORIA LI Time Seen: 19:30 Oct 12 2016. Arrived- By private vehicle. Historian- patient. HISTORY OF PRESENT ILLNESS Chief Complaint: SORE THROAT. This started today and is still present. Pain described as mild. The patient has had a sore throat. (Patient with sore throat, dry cough irritation to the posterior throat. Denies fevers or chills. 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 Denies any nausea vomiting or diarrhea. Denies productive cough.). Recent medical care: Not recently seen/assessed. REVIEW OF SYSTEMS No fever, nausea or abdominal pain. All systems otherwise negative, except as recorded above. SOCIAL HISTORY Smoker- current status unknown. No drug use. ADDITIONAL NOTES The nursing notes have been reviewed. PHYSICAL EXAM Vital Signs: 10/12/2016 18:33 BP: 124/77. HR: 103. RR: 20. O2 saturation: 98%. Temp: 98.6 F. Pain level now: 5/10. Appearance: Alert. Head: Normal external inspection. ENT: Ears normal. Nose normal. Pharynx normal. Lips normal. Gums normal. No trismus present. Uvula midline. No tonsillar exudate. Neck: Trachea midline. No adenopathy. Thyroid normal. CVS: Normal heart rate and rhythm. Heart sounds normal. No cardiac murmur. There is no decreased capillary refill. Respiratory: No respiratory distress. Breath sounds normal. Abdomen: Soft. No obesity or abdominal tenderness. Extremities: Extremities nontender. Neuro: Oriented X 3. LABS, X-RAYS, AND EKG Laboratory Tests: Culture, Strep Screen: (MISSAEL: 10/12/2016 18:50) ( MsgRcvd 10/12/2016 19:07) Final results Test Result Flag Units (Reference) RAPID STREP SCREEN - THROAT DATE: 10/12/16 NEGATIVE SCREEN: RAPID STREP SCREEN NEGATIVE; CONFIRMATION TO FOLLOW . PROGRESS AND PROCEDURES Course of Care: Patient in the ER is afebrile, no lymphadenopathy, rapid strep negative. At this time given steroids for inflammatory process,. Uvula is midline. No difficulty with speech or respirations. Patient is stable. Symptoms better. Patient/family counseled. Disposition: Discharged. Condition: good. CLINICAL IMPRESSION Acute pharyngitis INSTRUCTIONS Drink plenty of fluids. (warm salt water rinses). OTC Medications: Take ibuprofen (Advil, Nuprin, etc.) according to label instructions. Available over the counter. Acetaminophen (available over the counter): take according to label instructions. Understanding of the discharge instructions verbalized by patient. (Electronically signed by Rosaura Narayan P.A.-C 10/12/2016 19:32)
--- NOTE | 2016-10-12 19:22 | ED NURSING NOTES ---
Clinical Report - Nurses [facility] [address] [place] [address] 10/12/2016 18:24 Patient: GLORIA LI TRIAGE Triage time 18:33. Acuity: LEVEL 3. Chief Complaint: SORE THROAT. Alert. No acute distress. --18:46 Monae Cabrera R.N. 18:32 10/12/16. BP: 124/77. HR: 103. RR: 20. O2 saturation: 98%. Temp: 98.6 F. Pain level now: 12/10. --18:46 Monae Cabrera R.N. Weight: 61.2 kg stated. Height/Length: 64 inches Per Patient. BMI: 23.2. --18:44 Monae Cabrera R.N. Medications Imitrex Oral (Tablet 100 mg) 1 tablet, PRN. LaMICtal Oral. --18:38 Monae Cabrera R.N. Zofran Oral 4 mg, PRN. --18:38 Monae Cabrera R.N. Fioricet Oral 1 tablet, as needed. --18:38 Monae Cabrera R.N. Xanax Oral 0.5 mg, at bedtime. --18:39 Monae Cabrera R.N. Medication/allergy information source: the patient. --18:46 Monae Cabrera R.N. Allergies Penicillin. --18:38 Monae Cabrera R.N. History Arrived by private vehicle. Historian: patient. 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 This started today. 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 She has had hoarseness. 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 PAST MEDICAL HX: Immunizations: up-to-date. Last normal menstrual period- Sep 24. SOCIAL HX: Light tobacco smoker (cigarette)- less than 1/2 a pack per day. Patient refuses to answer tobacco use questions. No alcohol use or drug use. FALL RISK ASSESSMENT: Fall risk assessment completed. No fall risk identified. NUTRITIONAL RISK ASSESSMENT: The nutritional risk assessment revealed no deficiencies. FUNCTIONAL ASSESSMENT: Functional assessment: no impairments noted. LEARNING NEEDS ASSESSMENT: The learning needs assessment revealed no barriers. SKIN INTEGRITY ASSESSMENT: Skin integrity risk assessment completed. No skin integrity risk identified. --18:46 Monae Cabrera R.N. PROBLEMS: Throat, sore . Headache. Mastitis. Pharyngitis. UTI - Urinary Tract Infection. Suicide Attempt. Mental Illness. MRSA Infection. Drug Poisoning. LNMP - Last Normal Menstrual Period. Depression. Anxiety Reaction. Bipolar Disorder. Migraine Headache. Ectopic . --18:40 Monae Cabrera R.N. ADDITIONAL SURGERIES: Breast Augmentation. Dilatation & Curettage. --18:40 Monae Cabrera R.N. Interventions ID band on patient. To room. --18:46 Monae Cabrera R.N. PHYSICAL ASSESSMENT <<STRICKEN ENTRY-- Ambulatory to room. Patient gowned. GENERAL / NEURO / PSYCH: Alert. Appears in pain and anxious. HEENT: Pharyngeal erythema. Mucous membranes are pink. RESPIRATORY: Respirations not labored. CVS: Capillary refill less than 2 seconds. SKIN: Skin is warm and dry. Normal skin turgor. --18:47 Monae Cabrera R.N. --END STRIKE>> Correction --18:47 Monae Cabrera R.N. Ambulatory to room. Patient gowned. GENERAL / NEURO / PSYCH: Alert. Appears in pain and anxious. HEENT: Hoarse voice. ( dry cough). Mucous membranes are pink. RESPIRATORY: Respirations not labored. CVS: Capillary refill less than 2 seconds. SKIN: Skin is warm and dry. Normal skin turgor. --18:48 Monae Cabrera R.N. NURSING PROGRESS NOTES Patient gowned. Head of bed elevated. Two patient identifiers checked. Call light placed in reach. Side rails up x 1. Bed placed in lowest position. Brakes of bed on. Patient ready for evaluation. --18:48 Monae Cabrera R.N. 18:55. Patient ID band checked for patient name: patient confirmed. Throat swab obtained for rapid strep; labeled in the presence of the patient and sent to lab. --19:05 Monae Cabrera R.N. 19:25 10/12/2016 Dexamethasone (Dexamethasone) PO 8 mg given. Allergies verified and confirmed 5 rights. --19:33 Monae Cabrera R.N. DISPOSITION / DISCHARGE Condition at departure: unchanged. No learning barriers present. Discharge instructions provided and reviewed with the patient. Reviewed medication(s) side effects, precautions, dosing and course information. Prescription(s) given to the patient. Patient verbalized understanding. Written instructions provided in Bulgarian. The patient was discharged home and accompanied by station manager. She left the Emergency Department ambulatory and via private vehicle. Inside Plant Supervisor driving. Medication list reviewed and validated. --19:40 Monae Cabrera R.N. 19:38 10/12/16. BP: 126/79. HR: 70. RR: 20. O2 saturation: 98%. Temp: deferred. Pain level now: 12/10. 18:32 10/12/16. BP: 124/77. HR: 103. RR: 20. O2 saturation: 98%. Temp: 98.6 F. Pain level now: 12/10. --19:40 Monae Cabrera R.N. Locked/Released at 10/12/2016 19:40 by Monae Cabrera R.N.
--- NOTE | 2016-10-12 19:41 | ED MAR SUMMARY ---
..... Medication Administration Record [facility] [address] [place] [address] Patient: GLORIA LI Visit ID: [id number] 36y, F Weight: 61.2 kg Height/Length: 64 in BMI: 23.2 ALLERGIES: Penicillin Given 19:25 10/12/2016 Monae Cabrera R.N. Medication Administered: DEXAMETHASONE [PO] (DEXAMETHASONE), Dose: 8 mg PO. Medication Ordered: Dexamethasone PO 8 mg (NOW).
--- NOTE | 2016-10-12 19:41 | ED MED RECONCILIATION SUMMARY ---
Patient: GLORIA LI Medication Reconciliation Report [facility] VisitID: [id number] [address] [place] [address] 36y, F Registration Date/Time: 10/12/2016 Weight: 61.2 kg Height/Length: 64 in. BMI: 23.2 ALLERGIES: Penicillin The patient's Home Medications are listed below: THE FOLLOWING MEDICATIONS NEED TO BE RECONCILED: Fioricet Oral 1 tablet Imitrex Oral (100 mg) 1 tablet, PRN LaMICtal Oral Xanax Oral 0.5 mg, at bedtime Zofran Oral 4 mg, PRN The source(s) of the original Home Medication information: patient The following Medications were given to the patient in the Emergency Department: Dexamethasone [PO] PO 8 mg, administered: 10/12/2016 7:25:00 PM The following Medications were prescribed to the patient: Take ibuprofen (Advil, Nuprin, etc.) according to label instructions. Available over the counter. -- Rosaura Narayan, P.A.-C Acetaminophen (available over the counter): take according to label instructions. -- Rosaura Narayan, P.A.-C
--- NOTE | 2016-10-12 19:41 | ED MED RECONCILIATION SUMMARY ---
Patient: GLORIA LI Medication Reconciliation Report [facility] VisitID: [id number] [address] [place] [address] 36y, F Registration Date/Time: 10/12/2016 Weight: 61.2 kg Height/Length: 64 in. BMI: 23.2 ALLERGIES: Penicillin The patient's Home Medications are listed below: THE FOLLOWING MEDICATIONS NEED TO BE RECONCILED: Fioricet Oral 1 tablet Imitrex Oral (100 mg) 1 tablet, PRN LaMICtal Oral Xanax Oral 0.5 mg, at bedtime Zofran Oral 4 mg, PRN The source(s) of the original Home Medication information: patient The following Medications were given to the patient in the Emergency Department: Dexamethasone [PO] PO 8 mg, administered: 10/12/2016 7:25:00 PM The following Medications were prescribed to the patient: Take ibuprofen (Advil, Nuprin, etc.) according to label instructions. Available over the counter. -- Rosaura Narayan, P.A.-C Acetaminophen (available over the counter): take according to label instructions. -- Rosaura Narayan, P.A.-C
--- NOTE | 2016-10-12 19:41 | ED DISCHARGE INSTRUCTIONS ---
Patient: GLORIA LI General Instructions [facility] VisitID: [id number] [place] [address] 36y, F Registration Date/Time: 10/12/2016 Acute pharyngitis INSTRUCTIONS Drink plenty of fluids. (warm salt water rinses). OTC Medications: Take ibuprofen (Advil, Nuprin, etc.) according to label instructions. Available over the counter. Acetaminophen (available over the counter): take according to label instructions. Understanding of the discharge instructions verbalized by patient. ADDITIONAL INFORMATION Viral Pharyngitis (Sore Throat) Your throat pain is due to an infection called "Viral Pharyngitis", commonly known as "Sore Throat". This is a contagious illness. It is spread through the air by coughing, kissing or by touching others after touching your mouth or nose. Symptoms include throat pain worse with swallowing, aching all over, headache and fever. Unlike strep throat, which is a bacterial infection, this illness does not require treatment with an antibiotic. Home Care: If your symptoms are severe, rest at home for the first 2-3 days. Children: Use acetaminophen (Tylenol) for fever, fussiness or discomfort. In infants over six months of age, you may use ibuprofen (Children's Motrin) instead of Tylenol. [NOTE: If your child has chronic liver or kidney disease or ever had a stomach ulcer or GI bleeding, talk with your mimi doctor before using these medicines.] (Aspirin should never be used in anyone under 18 years of age who is ill with a fever. It may cause severe liver damage.) Adults: You may use acetaminophen (Tylenol) or ibuprofen (Motrin, Advil) to control pain or fever, unless another medicine was prescribed. [NOTE: If you have chronic liver or kidney disease or ever had a stomach ulcer or GI bleeding, talk with your doctor before using these medicines.] Throat lozenges or sprays (Chloraseptic and others) will reduce pain. Gargling with warm salt water will also reduce throat pain. Dissolve 1/2 teaspoon of salt in 1 glass of warm water. This is especially useful just before meals. Follow Up with your doctor or as directed by our staff if you are not improving over the next week. Get Prompt Medical Attention if any of the following occur: Fever over 100.5F (38.0C) oral, or over 101.5F (38.6C) rectal for more than three days New or worsening ear pain, sinus pain or headache Painful lumps in the back of your neck Unable to swallow liquids or open your mouth wide due to throat pain Trouble breathing or noisy breathing Muffled voice New rash You have been given the following additional information: Pharyngitis, Viral (Electronically signed by Rosaura Narayan P.A.-C 10/12/2016 19:32)
--- NOTE | 2016-10-12 19:41 | ED MAR SUMMARY ---
..... Medication Administration Record [facility] [address] [place] [address] Patient: GLORIA LI Visit ID: [id number] 36y, F Weight: 61.2 kg Height/Length: 64 in BMI: 23.2 ALLERGIES: Penicillin Given 19:25 10/12/2016 Monae Cabrera R.N. Medication Administered: DEXAMETHASONE [PO] (DEXAMETHASONE), Dose: 8 mg PO. Medication Ordered: Dexamethasone PO 8 mg (NOW).
== END 2016-10-12 19:30 | disposition home or self-care (01) ==
LOC: ED SRH 18:22
DX: J02.9 Acute pharyngitis, unspecified (principal)
CPT/HCPCS: 90154; 90159

== ENCOUNTER 2016-10-13 23:15 | Emergency (ER) | payer OTHER ==
--- NOTE | 2016-10-14 01:04 | ED NURSING NOTES ---
Clinical Report - Nurses [facility] [address] [place] [address] 10/13/2016 23:15 Patient: GLORIA LI TRIAGE Triage time 23:22. Acuity: LEVEL 4. Chief Complaint: COUGH (sore throat). --23:26 Kelly Poe R.N. 23:26 10/13/16. BP: 143/94. HR: 124. RR: 18. O2 saturation: 98%. Temp: 99.1 F (oral). Sousa-Mata pain scale: 4/10. --23:28 Kelly Poe R.N. Weight: 61.2 kg stated. Height/Length: 63 inches Per Patient. BMI: 23.9. --23:24 Kelly Poe R.N. Medications Fioricet Oral 1 tablet, as needed. Imitrex Oral (Tablet 100 mg) 1 tablet, PRN. LaMICtal Oral. Xanax Oral 0.5 mg, at bedtime. Zofran Oral 4 mg, PRN. --23:23 Kelly Poe R.N. Allergies Penicillin. --23:23 Kelly Poe R.N. History Arrived by private vehicle. Historian: patient. Primary physician (Lila Trejo). ( was seen here yesterday.). 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 PAST MEDICAL HX: Immunizations: up-to-date. Last normal menstrual period- Sep 24. No contraception. Not sexually active. SOCIAL HX: Heavy tobacco smoker (cigarette)- less than 1 pack per day. History of occasional drug use: marijuana. No alcohol use. NUTRITIONAL RISK ASSESSMENT: The nutritional risk assessment revealed no deficiencies. FUNCTIONAL ASSESSMENT: Functional assessment: no impairments noted. --23:26 Kelly Poe R.N. PROBLEMS: Throat, sore . Headache. Mastitis. Pharyngitis. UTI - Urinary Tract Infection. Suicide Attempt. Mental Illness. MRSA Infection. Drug Poisoning. LNMP - Last Normal Menstrual Period. Depression. Anxiety Reaction. Bipolar Disorder. Migraine Headache. Ectopic . --23:24 Kelly Poe R.N. ADDITIONAL SURGERIES: Breast Augmentation. Dilatation & Curettage. Ectopic . --23:24 Kelly Poe R.N. Interventions ID band on patient. To treatment room. --23: Kelly Poe R.N. PHYSICAL ASSESSMENT Ambulatory to room. GENERAL / NEURO / PSYCH: Alert. Oriented X 4. Appears in no acute distress. RESPIRATORY: Respirations not labored. Cough. CVS: Capillary refill less than 2 seconds. SKIN: Skin is warm. --23:28 Kelly Poe R.N. NURSING PROGRESS NOTES Head of bed elevated. Two patient identifiers checked. Call light placed in reach. Side rails up x 1. Bed placed in lowest position. Brakes of bed on. --:28 Kelly Poe R.N. Patient ready for evaluation- chart flagged. --23:28 Kelly Poe R.N. 00:24 10/14/2016 GI COCKTAIL WHITE (Simethicone) PO Oral Suspension 50 mL given. Allergies verified and confirmed 5 rights. --00:27 Kelly Poe R.N. 00:27 10/14/16. BP: 110/68. HR: 104. RR: 18. O2 saturation: 98% on room air. Sousa-Mata pain scale: 2/10. --00:27 Kelly Poe R.N. Patient returned from radiology by stretcher with tech. --00:40 Kelly Poe R.N. DISPOSITION / DISCHARGE Condition at departure: improved and stable. No learning barriers present. Discharge instructions provided and reviewed with the patient. Reviewed medication(s) side effects, precautions, dosing and course information. Prescription(s) given to the patient. Patient verbalized understanding. Written instructions provided in Yoruba. The patient was discharged home. She left the Emergency Department ambulatory and via private vehicle. Patient driving. --01:15 Kelly Poe R.N. 01:13 10/14/16. BP: 108/80. HR: 97. RR: 16. O2 saturation: 99% on room air. Temp: deferred. Sousa-Mata pain scale: 2/10. --01:15 Kelly Poe R.N. Locked/Released at 10/14/2016 1:15 by Kelly Poe R.N.
--- NOTE | 2016-10-14 01:04 | ED CLINICAL REPORT ---
Clinical Report - Physicians/Mid Levels [facility] [address] [place] [address] 10/13/2016 23:15 Patient: GLORIA LI Time Seen: 00:00 Oct 14 2016. Arrived- By private vehicle. Historian- patient. CPT: ER phys charges level 3 (#[id number]). HISTORY OF PRESENT ILLNESS Chief Complaint: DYSPNEA and Sore throat. Is still present. The dyspnea is described as moderate and is worsened by exertion and is improved by rest. The patient has had sputum production, a cough and dyspnea on exertion. No fever, sweating episodes, wheezing or chest pain or discomfort. No calf pain, foot swelling, dizziness or palpitations. Similar symptoms previously: Recent medical care: Not recently seen/assessed. REVIEW OF SYSTEMS No eye irritation, sore throat, nasal discharge, sinus drainage or nausea. No vomiting, abdominal pain, diarrhea, black stools or headache. No fainting episodes, difficulty with urination, excessive urination, skin rash or enlarged lymph nodes. No joint pain. All systems otherwise negative, except as recorded above. PAST HISTORY Throat, sore . Headache. Mastitis. Pharyngitis. UTI - Urinary Tract Infection. Suicide Attempt. Mental Illness. MRSA Infection. Drug Poisoning. LNMP - Last Normal Menstrual Period. Depression. Anxiety Reaction. Bipolar Disorder. Migraine Headache. Ectopic . - ADDITIONAL SURGERIES: Breast Augmentation. Dilatation & Curettage. Ectopic . Medications: Fioricet Oral 1 tablet, as needed. Imitrex Oral (Tablet 100 mg) 1 tablet, PRN. LaMICtal Oral. Xanax Oral 0.5 mg, at bedtime. Zofran Oral 4 mg, PRN. Allergies: Penicillin. SOCIAL HISTORY Heavy tobacco smoker (cigarette)- less than 1 pack per day. History of occasional drug use: marijuana. No alcohol use. ADDITIONAL NOTES The nursing notes have been reviewed. PHYSICAL EXAM Vital Signs: 10/13/2016 23:26 BP: 143/94. HR: 124. RR: 18. O2 saturation: 98%. Temp: 99.1 F. Sousa-Mata pain scale: 4/10. Appearance: Alert. No acute distress. Eyes: Pupils equal, round and reactive to light. Eyes normal inspection. ENT: Ears normal. Nose normal. Pharyngeal erythema. Uvula midline. Neck: Normal inspection. No jugular venous distention. Neck supple. CVS: Normal heart rate and rhythm. Heart sounds normal. Pulses normal. Respiratory: No respiratory distress. Breath sounds normal. Abdomen: Soft and nontender. Back: Normal inspection. Skin: Skin warm. Normal skin color. No rash. Extremities: Extremities exhibit normal ROM. No lower extremity edema. Neuro: Oriented X 3. No motor deficit. No sensory deficit. Reflexes normal. LABS, X-RAYS, AND EKG Chest X-ray: Normal Chest X-Ray. Note - Tests: (Soft tuissue neck negative.). PROGRESS AND PROCEDURES Course of Care: GI cocktail helps throat pain. Patient/family counseled. Disposition: Discharged. Condition: stable. CLINICAL IMPRESSION Acute bacterial bronchitis. Acute pharyngitis. INSTRUCTIONS Warnings: Further evaluation is necessary. GENERAL WARNINGS: Return or contact your physician immediately if your condition worsens or changes unexpectedly, if not improving as expected, or if other problems arise. Your Current Medications: CONTINUE TAKING THE FOLLOWING MEDICATIONS: Fioricet Oral : 1 tablet, prn. Imitrex Oral : Tablet 100 mg, 1 tablet PRN. LaMICtal Oral. Xanax Oral : 0.5 mg at bedtime. Zofran Oral : 4 mg PRN. Prescription Medications: Albuterol HFA oral inhaler: inhale 2 puffs via spacer every 4 hours as needed, until symptoms improve. Dispense one (1) unit. No refill. (to help cough) Zithromax 250 mg tablets: take 2 orally today, followed by 1 daily for the next 4 days. No refills. Substitution is permissible. Hydrocodone / APAP Liquid 7.5mg/325mg/15 mL: take ten (10) mL orally every 4 hours as needed for pain. Dispense two hundred (200) mL. No refill. Oncology oral rinse: 1 part maalox, 1 part benadryl and 1 part viscous lidocaine : Swish affected area q 4 hours prn. # 100 ml. OTC Medications: Motrin (available over the counter): take according to label instructions. Follow-up: Follow up with your doctor in two days if not better. Understanding of the discharge instructions verbalized by patient. (Electronically signed by Santosh Gresham MD 10/16/2016 9:57)
--- NOTE | 2016-10-14 01:04 | ED NURSING NOTES ---
Clinical Report - Nurses [facility] [address] [place] [address] 10/13/2016 23:15 Patient: GLORIA LI TRIAGE Triage time 23:22. Acuity: LEVEL 4. Chief Complaint: COUGH (sore throat). --23:26 Kelly Poe R.N. 23:26 10/13/16. BP: 143/94. HR: 124. RR: 18. O2 saturation: 98%. Temp: 99.1 F (oral). Sousa-Mata pain scale: 4/10. --23:28 Kelly Poe R.N. Weight: 61.2 kg stated. Height/Length: 63 inches Per Patient. BMI: 23.9. --23:24 Kelly Poe R.N. Medications Fioricet Oral 1 tablet, as needed. Imitrex Oral (Tablet 100 mg) 1 tablet, PRN. LaMICtal Oral. Xanax Oral 0.5 mg, at bedtime. Zofran Oral 4 mg, PRN. --23:23 Kelly Poe R.N. Allergies Penicillin. --23:23 Kelly Poe R.N. History Arrived by private vehicle. Historian: patient. Primary physician (Lila Trejo). ( was seen here yesterday.). 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 PAST MEDICAL HX: Immunizations: up-to-date. Last normal menstrual period- Sep 24. No contraception. Not sexually active. SOCIAL HX: Heavy tobacco smoker (cigarette)- less than 1 pack per day. History of occasional drug use: marijuana. No alcohol use. NUTRITIONAL RISK ASSESSMENT: The nutritional risk assessment revealed no deficiencies. FUNCTIONAL ASSESSMENT: Functional assessment: no impairments noted. --23:26 Kelly Poe R.N. PROBLEMS: Throat, sore . Headache. Mastitis. Pharyngitis. UTI - Urinary Tract Infection. Suicide Attempt. Mental Illness. MRSA Infection. Drug Poisoning. LNMP - Last Normal Menstrual Period. Depression. Anxiety Reaction. Bipolar Disorder. Migraine Headache. Ectopic . --23:24 Kelly Poe R.N. ADDITIONAL SURGERIES: Breast Augmentation. Dilatation & Curettage. Ectopic . --23:24 Kelly Poe R.N. Interventions ID band on patient. To treatment room. --23: Kelly Poe R.N. PHYSICAL ASSESSMENT Ambulatory to room. GENERAL / NEURO / PSYCH: Alert. Oriented X 4. Appears in no acute distress. RESPIRATORY: Respirations not labored. Cough. CVS: Capillary refill less than 2 seconds. SKIN: Skin is warm. --23:28 Kelly Poe R.N. NURSING PROGRESS NOTES Head of bed elevated. Two patient identifiers checked. Call light placed in reach. Side rails up x 1. Bed placed in lowest position. Brakes of bed on. --:28 Kelly Poe R.N. Patient ready for evaluation- chart flagged. --23:28 Kelly Poe R.N. 00:24 10/14/2016 GI COCKTAIL WHITE (Simethicone) PO Oral Suspension 50 mL given. Allergies verified and confirmed 5 rights. --00:27 Kelly Poe R.N. 00:27 10/14/16. BP: 110/68. HR: 104. RR: 18. O2 saturation: 98% on room air. Sousa-Mata pain scale: 2/10. --00:27 Kelly Poe R.N. Patient returned from radiology by stretcher with tech. --00:40 Kelly Poe R.N. DISPOSITION / DISCHARGE Condition at departure: improved and stable. No learning barriers present. Discharge instructions provided and reviewed with the patient. Reviewed medication(s) side effects, precautions, dosing and course information. Prescription(s) given to the patient. Patient verbalized understanding. Written instructions provided in Uzbek. The patient was discharged home. She left the Emergency Department ambulatory and via private vehicle. Patient driving. --01:15 Kelly Poe R.N. 01:13 10/14/16. BP: 108/80. HR: 97. RR: 16. O2 saturation: 99% on room air. Temp: deferred. Sousa-Mata pain scale: 2/10. --01:15 Kelly Poe R.N. Locked/Released at 10/14/2016 1:15 by Kelly Poe R.N.
--- NOTE | 2016-10-14 01:04 | ED CLINICAL REPORT ---
Clinical Report - Physicians/Mid Levels [facility] [address] [place] [address] 10/13/2016 23:15 Patient: GLORIA LI Time Seen: 00:00 Oct 14 2016. Arrived- By private vehicle. Historian- patient. CPT: ER phys charges level 3 (#[id number]). HISTORY OF PRESENT ILLNESS Chief Complaint: DYSPNEA and Sore throat. Is still present. The dyspnea is described as moderate and is worsened by exertion and is improved by rest. The patient has had sputum production, a cough and dyspnea on exertion. No fever, sweating episodes, wheezing or chest pain or discomfort. No calf pain, foot swelling, dizziness or palpitations. Similar symptoms previously: Recent medical care: Not recently seen/assessed. REVIEW OF SYSTEMS No eye irritation, sore throat, nasal discharge, sinus drainage or nausea. No vomiting, abdominal pain, diarrhea, black stools or headache. No fainting episodes, difficulty with urination, excessive urination, skin rash or enlarged lymph nodes. No joint pain. All systems otherwise negative, except as recorded above. PAST HISTORY Throat, sore . Headache. Mastitis. Pharyngitis. UTI - Urinary Tract Infection. Suicide Attempt. Mental Illness. MRSA Infection. Drug Poisoning. LNMP - Last Normal Menstrual Period. Depression. Anxiety Reaction. Bipolar Disorder. Migraine Headache. Ectopic . - ADDITIONAL SURGERIES: Breast Augmentation. Dilatation & Curettage. Ectopic . Medications: Fioricet Oral 1 tablet, as needed. Imitrex Oral (Tablet 100 mg) 1 tablet, PRN. LaMICtal Oral. Xanax Oral 0.5 mg, at bedtime. Zofran Oral 4 mg, PRN. Allergies: Penicillin. SOCIAL HISTORY Heavy tobacco smoker (cigarette)- less than 1 pack per day. History of occasional drug use: marijuana. No alcohol use. ADDITIONAL NOTES The nursing notes have been reviewed. PHYSICAL EXAM Vital Signs: 10/13/2016 23:26 BP: 143/94. HR: 124. RR: 18. O2 saturation: 98%. Temp: 99.1 F. Sousa-Mata pain scale: 4/10. Appearance: Alert. No acute distress. Eyes: Pupils equal, round and reactive to light. Eyes normal inspection. ENT: Ears normal. Nose normal. Pharyngeal erythema. Uvula midline. Neck: Normal inspection. No jugular venous distention. Neck supple. CVS: Normal heart rate and rhythm. Heart sounds normal. Pulses normal. Respiratory: No respiratory distress. Breath sounds normal. Abdomen: Soft and nontender. Back: Normal inspection. Skin: Skin warm. Normal skin color. No rash. Extremities: Extremities exhibit normal ROM. No lower extremity edema. Neuro: Oriented X 3. No motor deficit. No sensory deficit. Reflexes normal. LABS, X-RAYS, AND EKG Chest X-ray: Normal Chest X-Ray. Note - Tests: (Soft tuissue neck negative.). PROGRESS AND PROCEDURES Course of Care: GI cocktail helps throat pain. Patient/family counseled. Disposition: Discharged. Condition: stable. CLINICAL IMPRESSION Acute bacterial bronchitis. Acute pharyngitis. INSTRUCTIONS Warnings: Further evaluation is necessary. GENERAL WARNINGS: Return or contact your physician immediately if your condition worsens or changes unexpectedly, if not improving as expected, or if other problems arise. Your Current Medications: CONTINUE TAKING THE FOLLOWING MEDICATIONS: Fioricet Oral : 1 tablet, prn. Imitrex Oral : Tablet 100 mg, 1 tablet PRN. LaMICtal Oral. Xanax Oral : 0.5 mg at bedtime. Zofran Oral : 4 mg PRN. Prescription Medications: Albuterol HFA oral inhaler: inhale 2 puffs via spacer every 4 hours as needed, until symptoms improve. Dispense one (1) unit. No refill. (to help cough) Zithromax 250 mg tablets: take 2 orally today, followed by 1 daily for the next 4 days. No refills. Substitution is permissible. Hydrocodone / APAP Liquid 7.5mg/325mg/15 mL: take ten (10) mL orally every 4 hours as needed for pain. Dispense two hundred (200) mL. No refill. Oncology oral rinse: 1 part maalox, 1 part benadryl and 1 part viscous lidocaine : Swish affected area q 4 hours prn. # 100 ml. OTC Medications: Motrin (available over the counter): take according to label instructions. Follow-up: Follow up with your doctor in two days if not better. Understanding of the discharge instructions verbalized by patient. (Electronically signed by Santosh Gresham MD 10/16/2016 9:57)
--- NOTE | 2016-10-14 01:04 | ED ORDER SUMMARY ---
..... Patient: GLORIA LI OrderSheet [facility] VisitID: [id number] [address] [place] [address] 36y, F Registration Date/Time: 10/13/2016 ORDER SHEET Weight: 61.2 kg (stated) Allergies: Penicillin GENERAL ORDERS: Chest 2V Urgent (00:17 10/14/2016 Clemente SALAS) (Ack 0:20 AMcQuoid ER Tech1) (0:44 GUnger) Soft Tissue Neck Urgent (00:17 10/14/2016 Clemente SALAS) (Ack 0:20 AMcQuoid ER Tech1) (0:44 GUnger) MEDICATION ORDERS: GI Cocktail WHITE PO 50 mL (NOW) (00:16 10/14/2016 Clemente SALAS) (Ack 0:20 RCollier R.N.) (0:27 RCollier R.N.) IV FLUIDS: ORDER SHEET NOTES: [Electronically signed by Kelly Poe R.N. (:15 10/14/2016)] [Electronically signed by Santosh Gresham MD (09:57 10/16/2016)] [Electronically locked/signed by Kelly Poe R.N. (:10/14/2016)]
--- NOTE | 2016-10-14 01:04 | ED ORDER SUMMARY ---
..... Patient: GLORIA LI OrderSheet [facility] VisitID: [id number] [address] [place] [address] 36y, F Registration Date/Time: 10/13/2016 ORDER SHEET Weight: 61.2 kg (stated) Allergies: Penicillin GENERAL ORDERS: Chest 2V Urgent (00:17 10/14/2016 Clemente SALAS) (Ack 0:20 AMcQuoid ER Tech1) (0:44 GUnger) Soft Tissue Neck Urgent (00:17 10/14/2016 Clemente SALAS) (Ack 0:20 AMcQuoid ER Tech1) (0:44 GUnger) MEDICATION ORDERS: GI Cocktail WHITE PO 50 mL (NOW) (00:16 10/14/2016 Clemente SALAS) (Ack 0:20 RCollier R.N.) (0:27 RCollier R.N.) IV FLUIDS: ORDER SHEET NOTES: [Electronically signed by Kelly Poe R.N. (:15 10/14/2016)] [Electronically signed by Santosh Gresham MD (09:57 10/16/2016)] [Electronically locked/signed by Kelly Poe R.N. (:10/14/2016)]
--- NOTE | 2016-10-14 05:50 | DIAGNOSTIC IMAGING REPORT ---
PROCEDURE: XR CHEST 2 VIEW INDICATION: COUGH, initial encounter TECHNIQUE: PA and lateral view. COMPARISON: None. FINDINGS: Lungs are clear. Cardiovascular structures are normal. Bony thorax is unremarkable. IMPRESSION: 1. Negative chest.
--- NOTE | 2016-10-14 05:52 | DIAGNOSTIC IMAGING REPORT ---
PROCEDURE: XR SOFT TISSUE NECK INDICATION: DIFFICULTY SWALLOWING TECHNIQUE: AP and lateral views. COMPARISON: Soft tissue neck 09/30/2015 FINDINGS: Subglottic edema with dilation of the upper airway. Normal epiglottis. Normal prevertebral soft tissues without evidence of air. No radiopaque foreign body. IMPRESSION: 1. Subglottic edema.
--- NOTE | 2016-10-16 09:58 | ED MED RECONCILIATION SUMMARY ---
Patient: GLORIA LI Medication Reconciliation Report [facility] VisitID: [id number] [address] [place] [address] 36y, F Registration Date/Time: 10/13/2016 Weight: 61.2 kg Height/Length: 63 in. BMI: 23.9 ALLERGIES: Penicillin The patient's Home Medications are listed below: CONTINUE TAKING THE FOLLOWING MEDICATIONS: Fioricet Oral 1 tablet Imitrex Oral (100 mg) 1 tablet, PRN LaMICtal Oral Xanax Oral 0.5 mg, at bedtime Zofran Oral 4 mg, PRN The source(s) of the original Home Medication information: Not obtained. The following Medications were given to the patient in the Emergency Department: GI COCKTAIL WHITE [PO] PO 50 mL, administered: 10/14/2016 12:24:00 AM The following Medications were prescribed to the patient: Motrin (available over the counter): take according to label instructions. -- Santosh Gresham MD Oncology oral rinse: 1 part maalox, 1 part benadryl and 1 part viscous lidocaine : Swish affected area q 4 hours prn. # 100 ml. -- Santosh Gresham MD Albuterol HFA oral inhaler: inhale 2 puffs via spacer every 4 hours as needed, until symptoms improve. Dispense one (1) unit. No refill.(to help cough) -- Santosh Gresham MD Zithromax 250 mg tablets: take 2 orally today, followed by 1 daily for the next 4 days. No refills. Substitution is permissible. -- Santosh Gresham MD Hydrocodone / APAP Liquid 7.5mg/325mg/15 mL: take ten (10) mL orally every 4 hours as needed for pain. Dispense two hundred (200) mL. No refill. -- Santosh Gresham MD
--- NOTE | 2016-10-16 09:58 | ED MAR SUMMARY ---
..... Medication Administration Record [facility] [address] [place] [address] Patient: GLORIA LI Visit ID: [id number] 36y, F Weight: 61.2 kg Height/Length: 63 in BMI: 23.9 ALLERGIES: Penicillin Given 00:24 10/14/2016 Kelly Poe R.N. Medication Administered: GI COCKTAIL WHITE [PO] (SIMETHICONE), Dose: 50 mL Oral Suspension PO. Medication Ordered: GI Cocktail WHITE PO 50 mL (NOW).
--- NOTE | 2016-10-16 09:58 | ED MED RECONCILIATION SUMMARY ---
Patient: GLORIA LI Medication Reconciliation Report [facility] VisitID: [id number] [address] [place] [address] 36y, F Registration Date/Time: 10/13/2016 Weight: 61.2 kg Height/Length: 63 in. BMI: 23.9 ALLERGIES: Penicillin The patient's Home Medications are listed below: CONTINUE TAKING THE FOLLOWING MEDICATIONS: Fioricet Oral 1 tablet Imitrex Oral (100 mg) 1 tablet, PRN LaMICtal Oral Xanax Oral 0.5 mg, at bedtime Zofran Oral 4 mg, PRN The source(s) of the original Home Medication information: Not obtained. The following Medications were given to the patient in the Emergency Department: GI COCKTAIL WHITE [PO] PO 50 mL, administered: 10/14/2016 12:24:00 AM The following Medications were prescribed to the patient: Motrin (available over the counter): take according to label instructions. -- Santosh Gresham MD Oncology oral rinse: 1 part maalox, 1 part benadryl and 1 part viscous lidocaine : Swish affected area q 4 hours prn. # 100 ml. -- Santosh Gresham MD Albuterol HFA oral inhaler: inhale 2 puffs via spacer every 4 hours as needed, until symptoms improve. Dispense one (1) unit. No refill.(to help cough) -- Santosh Gresham MD Zithromax 250 mg tablets: take 2 orally today, followed by 1 daily for the next 4 days. No refills. Substitution is permissible. -- Santosh Gresham MD Hydrocodone / APAP Liquid 7.5mg/325mg/15 mL: take ten (10) mL orally every 4 hours as needed for pain. Dispense two hundred (200) mL. No refill. -- Santosh Gresham MD
--- NOTE | 2016-10-16 09:58 | ED MAR SUMMARY ---
..... Medication Administration Record [facility] [address] [place] [address] Patient: GLORIA LI Visit ID: [id number] 36y, F Weight: 61.2 kg Height/Length: 63 in BMI: 23.9 ALLERGIES: Penicillin Given 00:24 10/14/2016 Kelly Poe R.N. Medication Administered: GI COCKTAIL WHITE [PO] (SIMETHICONE), Dose: 50 mL Oral Suspension PO. Medication Ordered: GI Cocktail WHITE PO 50 mL (NOW).
--- NOTE | 2016-10-16 09:58 | ED DISCHARGE INSTRUCTIONS ---
Patient: GLORIA LI General Instructions [facility] VisitID: [id number] [place] [address] 36y, F Registration Date/Time: 10/13/2016 Acute bacterial bronchitis. Acute pharyngitis. INSTRUCTIONS Warnings: Further evaluation is necessary. GENERAL WARNINGS: Return or contact your physician immediately if your condition worsens or changes unexpectedly, if not improving as expected, or if other problems arise. Your Current Medications: CONTINUE TAKING THE FOLLOWING MEDICATIONS: Fioricet Oral : 1 tablet, prn. Imitrex Oral : Tablet 100 mg, 1 tablet PRN. LaMICtal Oral. Xanax Oral : 0.5 mg at bedtime. Zofran Oral : 4 mg PRN. Prescription Medications: Albuterol HFA oral inhaler: inhale 2 puffs via spacer every 4 hours as needed, until symptoms improve. Dispense one (1) unit. No refill. (to help cough) Zithromax 250 mg tablets: take 2 orally today, followed by 1 daily for the next 4 days. No refills. Substitution is permissible. Hydrocodone / APAP Liquid 7.5mg/325mg/15 mL: take ten (10) mL orally every 4 hours as needed for pain. Dispense two hundred (200) mL. No refill. Oncology oral rinse: 1 part maalox, 1 part benadryl and 1 part viscous lidocaine : Swish affected area q 4 hours prn. # 100 ml. OTC Medications: Motrin (available over the counter): take according to label instructions. Follow-up: Follow up with your doctor in two days if not better. Understanding of the discharge instructions verbalized by patient. ADDITIONAL INFORMATION Bronchitis (Adult: Abx Tx) BRONCHITIS is an infection of the air passages (bronchial tubes). It often occurs during the common cold. Symptoms include cough with mucus (phlegm) and low-grade fever. Bronchitis usually lasts 7-14 days. Mild cases can be treated with simple home remedies. More severe infection is treated with an antibiotic. Home Care: If symptoms are severe, rest at home for the first 2-3 days. When you resume activity, don't let yourself get too tired. Do not smoke. Avoid being exposed to the smoke of others. You may use acetaminophen (Tylenol) or ibuprofen (Motrin, Advil) to control fever or pain, unless another medicine was prescribed for this. [NOTE: If you have chronic liver or kidney disease or ever had a stomach ulcer or GI bleeding, talk with your doctor before using these medicines.] Your appetite may be poor, so a light diet is fine. Avoid dehydration by drinking 6-8 glasses of fluids per day (water, soft, drinks, juices, tea, soup, etc.). Extra fluids will help loosen secretions in the lungs. Zwzl-[id number]-rdcuqcu cough medicines that containdextromethorphan(such as Robitussin DM) and decongestants (Actifed or Sudafed) may help relieve cough and congestion. [NOTE: Do not use decongestants if you have high blood pressure.] Finish all antibiotic medicine, even if you are feeling better after only a few days. Follow Up with your doctor or as directed if you dont start to feel better after three days. [NOTE: If you are age 65 or older, or if you have chronic asthma or COPD, we recommend a PNEUMOCOCCAL VACCINATION every five years and a yearly INFLUENZAVACCINATION (FLU-SHOT) every . Ask your doctor about this. If you had an X-ray, a radiologist will review it. You will be notified of any new findings that may affect your care.] Get Prompt Medical Attention if any of the following occur: Fever over 100.4F (38.0C) for more than three days Trouble breathing, wheezing or pain with breathing Coughing up blood or increased amounts of colored sputum Weakness, drowsiness, headache, facial pain, ear pain or a stiff neck Albuterol Sulfate Pressurized inhalation, suspension What is this medicine? ALBUTEROL (al BYOO ter ole) is a bronchodilator. It helps open up the airways in your lungs to make it easier to breathe. This medicine is used to treat and to prevent bronchospasm. How should I use this medicine? This medicine is for inhalation through the mouth. Follow the directions on your prescription label. Take your medicine at regular intervals. Do not use more often than directed. Make sure that you are using your inhaler correctly. Ask you doctor or health care provider if you have any questions. Talk to your cardiology technician regarding the use of this medicine in children. Special care may be needed. What side effects may I notice from receiving this medicine? Side effects that you should report to your doctor or health day care provider as soon as possible: allergic reactions like skin rash, itching or hives, swelling of the face, lips, or tongue breathing problems chest pain feeling faint or lightheaded, falls high blood pressure irregular heartbeat fever muscle cramps or weakness pain, tingling, numbness in the hands or feet vomiting Side effects that usually do not require medical attention (report to your doctor or health day care provider if they continue or are bothersome): cough difficulty sleeping headache nervousness or trembling stomach upset stuffy or runny nose throat irritation unusual taste What may interact with this medicine? anti-infectives like chloroquine and pentamidine caffeine cisapride diuretics medicines for colds medicines for depression or for emotional or psychotic conditions medicines for weight loss including some herbal products methadone some antibiotics like clarithromycin, erythromycin, levofloxacin, and linezolid some heart medicines steroid hormones like dexamethasone, cortisone, hydrocortisone theophylline thyroid hormones What if I miss a dose? If you miss a dose, use it as soon as you can. If it is almost time for your next dose, use only that dose. Do not use double or extra doses. Where should I keep my medicine? Keep out of the reach of children. Store at room temperature between 15 and 30 degrees C (59 and 86 degrees F). The contents are under pressure and may burst when exposed to heat or flame. Do not freeze. This medicine does not work as well if it is too cold. Throw away any unused medicine after the expiration date. Inhalers need to be thrown away after the labeled number of puffs have been used or by the expiration date; whichever comes first. Ventolin HFA should be thrown away 12 months after removing from foil pouch. Check the instructions that come with your medicine. What should I tell my health care provider before I take this medicine? They need to know if you have any of the following conditions: diabetes heart disease or irregular heartbeat high blood pressure pheochromocytoma seizures thyroid disease an unusual or allergic reaction to albuterol, levalbuterol, sulfites, other medicines, foods, dyes, or preservatives or trying to get breast-feeding What should I watch for while using this medicine? Tell your doctor or health day care provider if your symptoms do not improve. Do not use extra albuterol. If your asthma or bronchitis gets worse while you are using this medicine, call your doctor right away. If your mouth gets dry try chewing sugarless gum or sucking hard candy. Drink water as directed. Hydrocodone Bitartrate, Acetaminophen Oral solution What is this medicine? ACETAMINOPHEN; HYDROCODONE (a set a PATRICIA sabrina fen; zeeshan droe KOE done) is a pain reliever. It is used to treat mild to moderate pain. How should I use this medicine? Take this medicine by mouth. Use a specially marked spoon or dropper to measure your dose. Ask your pharmacist if you do not have a dropper or measuring spoon. Do not use a household spoon. Follow the directions on the prescription label. If the medicine upsets your stomach, take it with food or milk. Do not take more medicine than you are told to take. Talk to your cardiology technician regarding the use of this medicine in children. This medicine is not approved for use in children. What side effects may I notice from receiving this medicine? Side effects that you should report to your doctor or health day care provider as soon as possible: allergic reactions like skin rash, itching or hives, swelling of the face, lips, or tongue breathing problems confusion feeling faint or lightheaded, falls stomach pain yellowing of the eyes or skin Side effects that usually do not require medical attention (report to your doctor or health day care provider if they continue or are bothersome): nausea, vomiting stomach upset What may interact with this medicine? alcohol antihistamines isoniazid medicines for depression, anxiety, or psychotic disturbances medicines for sleep muscle relaxants naltrexone narcotic medicines (opiates) for pain phenobarbital ritonavir tramadol What if I miss a dose? If you miss a dose, take it as soon as you can. If it is almost time for your next dose, take only that dose. Do not take double or extra doses. Where should I keep my medicine? Keep out of the reach of children. This medicine can be abused. Keep your medicine in a safe place to protect it from theft. Do not share this medicine with anyone. Selling or giving away this medicine is dangerous and against the law. Store at room temperature between 20 and 25 degrees C (68 and 77 degrees F). Protect from light. Keep container tightly closed. Throw away any unused medicine after the expiration date. Discard unused medicine and used packaging carefully. Pets and children can be harmed if they find used or lost packages. What should I tell my health care provider before I take this medicine? They need to know if you have any of these conditions: brain tumor Crohn's disease, inflammatory bowel disease, or ulcerative colitis drink more than 3 alcohol-containing drinks per day drug abuse or addiction head injury heart or circulation problems kidney disease or problems going to the bathroom liver disease lung disease, asthma, or breathing problems an unusual or allergic reaction to acetaminophen, hydrocodone, other opioid analgesics, other medicines, foods, dyes, or preservatives or trying to get breast-feeding What should I watch for while using this medicine? Tell your doctor or health day care provider if your pain does not go away, if it gets worse, or if you have new or a different type of pain. You may develop tolerance to the medicine. Tolerance means that you will need a higher dose of the medicine for pain relief. Tolerance is normal and is expected if you take this medicine for a long time. Do not suddenly stop taking your medicine because you may develop a severe reaction. Your body becomes used to the medicine. This does NOT mean you are addicted. Addiction is a behavior related to getting and using a drug for a non-medical reason. If you have pain, you have a medical reason to take pain medicine. Your doctor will tell you how much medicine to take. If your doctor wants you to stop the medicine, the dose will be slowly lowered over time to avoid any side effects. You may get drowsy or dizzy when you first start taking the medicine or change doses. Do not drive, use machinery, or do anything that may be dangerous until you know how the medicine affects you. Stand or sit up slowly. There are different types of narcotic medicines (opiates) for pain. If you take more than one type at the same time, you may have more side effects. Give your health care provider a list of all medicines you use. Your doctor will tell you how much medicine to take. Do not take more medicine than directed. Call emergency for help if you have problems breathing. The medicine will cause constipation. Try to have a bowel movement at least every 2 to 3 days. If you do not have a bowel movement for 3 days, call your doctor or health day care provider. Too much acetaminophen can be very dangerous. Do not take Tylenol (acetaminophen) or medicines that contain acetaminophen with this medicine. Many non-prescription medicines contain acetaminophen. Always read the labels carefully. You have been given the following additional information: Bronchitis, Antiobiotic Treatment (Adult) Albuterol Sulfate Pressurized inhalation, suspension Hydrocodone Bitartrate, Acetaminophen Oral solution (Electronically signed by Santosh Gresham MD 10/16/2016 9:57)
== END 2016-10-14 01:14 | disposition home or self-care (01) ==
LOC: ED SRH 23:15
DX: J20.8 Acute bronchitis due to other specified organisms (principal); J02.9 Acute pharyngitis, unspecified; Z79.899 Other long term (current) drug therapy; Z88.0 Allergy status to penicillin; F17.210 Nicotine dependence, cigarettes, uncomplicated

== ENCOUNTER 2017-01-01 16:05 | Emergency (ER) | payer OTHER ==
--- NOTE | 2017-01-01 18:11 | ED ORDER SUMMARY ---
..... Patient: GLORIA LI OrderSheet [facility] VisitID: [id number] [address] [place] [address] 36y, F Registration Date/Time: 01/01/2017 ORDER SHEET Weight: 58.5 kg (stated) Allergies: Penicillin GENERAL ORDERS: CBC w Diff Urgent (16:33 01/01/2017 EKoroleva P.A.-C) (Ack 16:44 KHoerner) (17:06 SBalde R.N.) CMP Urgent (16:33 01/01/2017 EKoroleva P.A.-C) (Ack 16:44 KHoerner) (17:06 SBalde R.N.) UA-Culture if indicated Urgent (16:33 01/01/2017 EKoroleva P.A.-C) (Ack 16:44 KHoerner) (17:51 SBalde R.N.) Lipase Urgent (16:33 01/01/2017 EKoroleva P.A.-C) (Ack 16:44 KHoerner) (17:06 SBalde R.N.) Urine Urgent (16:33 01/01/2017 EKoroleva P.A.-C) (Ack 16:44 KHoerner) (17:51 SBalde R.N.) MEDICATION ORDERS: IV FLUIDS: IV NS : initial bolus 1000 mL (1000 mL/hr), then 1000 mL/hr for X1 (NOW); Bishnu (16:33 01/01/2017 EKoroleva P.A.-C) (17:06 SBalde R.N.) Toradol IV 30 mg (NOW) (16:39 01/01/2017 EKoroleva P.A.-C) (17:10 SBalde R.N.) Zofran IV 8 mg (NOW) (16:39 01/01/2017 EKoroleva P.A.-C) (17:07 SBalde R.N.) ORDER SHEET NOTES: [Electronically signed by Rosaura Narayan PJuliaAJulia-C (18:38 01/01/2017)] [Electronically signed by Fauzia Solis R.N. (18:48 01/01/2017)] [Electronically locked/signed by Fauzia Solis R.N. (18:48 01/01/2017)]
--- NOTE | 2017-01-01 18:11 | ED NURSING NOTES ---
Clinical Report - Nurses [facility] [address] [place] [address] 01/01/2017 16:05 Patient: GLORIA LI TRIAGE Triage time 16:Jan 01 2017. Acuity: LEVEL 3. Chief Complaint: ABDOMINAL PAIN, NAUSEA, VOMITING and DIARRHEA. Alert. No acute distress. --16:28 Fauzia Solis R.N. 16:23 01/01/17. BP: 138/104. HR: 76. RR: 18. O2 saturation: 100%. Temp: 98.1 F. --16:28 Fauzia Solis R.N. Weight: 58.5 kg stated. Height/Length: 62 inches Per Patient. BMI: 23.6. --16:23 Fauzia Solis R.N. Medications Fioricet Oral 1 tablet, as needed. Imitrex Oral (Tablet 100 mg) 1 tablet, PRN. LaMICtal Oral 200mg BID. Xanax Oral 0.5 mg, at bedtime. Zofran Oral 4 mg, PRN. --16:24 Fauzia Solis R.N. Medication/allergy information source: the patient. --16:28 Fauzai Solis R.N. Allergies Penicillin.(rash) --16:24 Fauzia Solis R.N. History Primary physician (Lila Vides). ( Since yesterday, N/V/D, has had a headache and reports a low grade fever. Pt has been eating the BRAT diet.). This started yesterday. She has had nausea, vomiting and diarrhea. 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 PAST MEDICAL HX: Immunizations: up-to-date and seasonal influenza. Last normal menstrual period- December, 3 weeks ago. No contraception. SOCIAL HX: Smoker- current status unknown. Occasional alcohol use. History of drug use: marijuana. No recent travel. No infectious disease exposure. No known contact with a sick individual. FALL RISK ASSESSMENT: Fall risk assessment completed. No fall risk identified. NUTRITIONAL RISK ASSESSMENT: The nutritional risk assessment revealed no deficiencies. FUNCTIONAL ASSESSMENT: Functional assessment: no impairments noted. LEARNING NEEDS ASSESSMENT: The learning needs assessment revealed no barriers. SKIN INTEGRITY ASSESSMENT: Skin integrity risk assessment completed. No skin integrity risk identified. --16:28 Fauzia Solis R.N. PROBLEMS: Bronchitis. Throat, sore . Headache. Mastitis. Pharyngitis. UTI - Urinary Tract Infection. Suicide Attempt. Mental Illness. MRSA Infection. Drug Poisoning. LNMP - Last Normal Menstrual Period. Depression. Anxiety Reaction. Bipolar Disorder. Migraine Headache. Ectopic . --16:26 Fauzia Solis R.N. ADDITIONAL SURGERIES: Breast Augmentation. Dilatation & Curettage. Ectopic . --16:26 Fauzia Solis R.N. Interventions ID band on patient. To room. --16:28 Fauzia Solis R.N. PHYSICAL ASSESSMENT Ambulatory to room. GENERAL / NEURO / PSYCH: Alert. Oriented X 4. Appears in no acute distress. RESPIRATORY: Respirations not labored. CVS: Capillary refill less than 2 seconds. SKIN: Skin is warm and dry. --18:39 Fauzia Solis R.N. NURSING PROGRESS NOTES Patient ready for evaluation- ED physician notified. --16:28 Fauzia Solis R.N. 17:05 01/01/2017 Site #1 started via IV in the right antecubital space with an 20g angiocath; one attempt. Blood drawn: rainbow set. Labeled in the presence of the patient and sent to the lab. Saline lock flushed with saline. --17:05 Fauzia Solis R.N. 17:06 01/01/2017 Started bag #1 1000 mL IV Fluids IV NS (Saline); at 1000 mL/hr over 1 hour(s) via site #1. Completed per protocol. --17:06 Fauzia Solis R.N. 17:07 01/01/2017 Zofran (Ondansetron HCl) IVP 8 mg given over 4 minute(s) via site #1. IV patency established. IV site checked: no pain, redness, or swelling. IV flushed thoroughly pre- and post-medication administration. IVP given by RN. --17:07 Fauzia Solis R.N. 17:10 01/01/2017 Toradol IVP 30 mg given over 2 minute(s) via site #1. IV patency established. IV site checked: no pain, redness, or swelling. IV flushed thoroughly pre- and post-medication administration. IVP given by RN. --17:10 Fauzia Solis R.N. 17:05 01/01/17. BP: 109/72. --17:10 Fauzia Solis R.N. 18:03 01/01/2017 IV Fluids IV NS Discontinued: bag #1 infused. Total amount infused: 1000 mL. IV patency established. IV site checked: no pain, redness, or swelling. IV flushed thoroughly. --18:03 Fauzia Solis R.N. ( Pt puts on the call light and requests her nurse. RN to bedside, pt states she doesn't feel good and wants to go home. Pt states she understands the process and care is not completed, but she wants to go home. Provider notified. Provider stated she will discharge the pt.). --18:45 Fauzia Solis R.N. 18:45 01/01/2017 Site #1 removed upon discharge. Bandage applied. --18:45 Fauzia Solis R.N. DISPOSITION / DISCHARGE Condition at departure: unchanged and stable. No learning barriers present. Reviewed medication(s). Work note given. Patient verbalized understanding. Written instructions provided in Romanian. The patient was discharged by the physician assistant paralegal. She was discharged home. She left the Emergency Department ambulatory and via private vehicle. Patient driving. --18:46 Fauzia Solis R.N. 18:46 01/01/17. BP: 109/72. HR: 78. RR: 18. O2 saturation: 99%. Pain level now 01/10. --18:46 Fauzia Solis R.N. Locked/Released at 01/01/2017 18:48 by Fauzia Solis R.N.
--- NOTE | 2017-01-01 18:11 | ED NURSING NOTES ---
Clinical Report - Nurses [facility] [address] [place] [address] 01/01/2017 16:05 Patient: GLORIA LI TRIAGE Triage time 16:Jan 01 2017. Acuity: LEVEL 3. Chief Complaint: ABDOMINAL PAIN, NAUSEA, VOMITING and DIARRHEA. Alert. No acute distress. --16:28 Fauzia Solis R.N. 16:23 01/01/17. BP: 138/104. HR: 76. RR: 18. O2 saturation: 100%. Temp: 98.1 F. --16:28 Fauzia Solis R.N. Weight: 58.5 kg stated. Height/Length: 62 inches Per Patient. BMI: 23.6. --16:23 Fauzia Solis R.N. Medications Fioricet Oral 1 tablet, as needed. Imitrex Oral (Tablet 100 mg) 1 tablet, PRN. LaMICtal Oral 200mg BID. Xanax Oral 0.5 mg, at bedtime. Zofran Oral 4 mg, PRN. --16:24 Fauzia Solis R.N. Medication/allergy information source: the patient. --16:28 Fauzia Solis R.N. Allergies Penicillin.(rash) --16:24 Fauzia Solis R.N. History Primary physician (Lila Vides). ( Since yesterday, N/V/D, has had a headache and reports a low grade fever. Pt has been eating the BRAT diet.). This started yesterday. She has had nausea, vomiting and diarrhea. 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 PAST MEDICAL HX: Immunizations: up-to-date and seasonal influenza. Last normal menstrual period- December, 3 weeks ago. No contraception. SOCIAL HX: Smoker- current status unknown. Occasional alcohol use. History of drug use: marijuana. No recent travel. No infectious disease exposure. No known contact with a sick individual. FALL RISK ASSESSMENT: Fall risk assessment completed. No fall risk identified. NUTRITIONAL RISK ASSESSMENT: The nutritional risk assessment revealed no deficiencies. FUNCTIONAL ASSESSMENT: Functional assessment: no impairments noted. LEARNING NEEDS ASSESSMENT: The learning needs assessment revealed no barriers. SKIN INTEGRITY ASSESSMENT: Skin integrity risk assessment completed. No skin integrity risk identified. --16:28 Fauzia Solis R.N. PROBLEMS: Bronchitis. Throat, sore . Headache. Mastitis. Pharyngitis. UTI - Urinary Tract Infection. Suicide Attempt. Mental Illness. MRSA Infection. Drug Poisoning. LNMP - Last Normal Menstrual Period. Depression. Anxiety Reaction. Bipolar Disorder. Migraine Headache. Ectopic . --16:26 Fauzia Solis R.N. ADDITIONAL SURGERIES: Breast Augmentation. Dilatation & Curettage. Ectopic . --16:26 Fauzia Solis R.N. Interventions ID band on patient. To room. --16:28 Fauzia Solis R.N. PHYSICAL ASSESSMENT Ambulatory to room. GENERAL / NEURO / PSYCH: Alert. Oriented X 4. Appears in no acute distress. RESPIRATORY: Respirations not labored. CVS: Capillary refill less than 2 seconds. SKIN: Skin is warm and dry. --18:39 Fauzia Solis R.N. NURSING PROGRESS NOTES Patient ready for evaluation- ED physician notified. --16:28 Fauzia Solis R.N. 17:05 01/01/2017 Site #1 started via IV in the right antecubital space with an 20g angiocath; one attempt. Blood drawn: rainbow set. Labeled in the presence of the patient and sent to the lab. Saline lock flushed with saline. --17:05 Fauzai Solis R.N. 17:06 01/01/2017 Started bag #1 1000 mL IV Fluids IV NS (Saline); at 1000 mL/hr over 1 hour(s) via site #1. Completed per protocol. --17:06 Fauzia Solis R.N. 17:07 01/01/2017 Zofran (Ondansetron HCl) IVP 8 mg given over 4 minute(s) via site #1. IV patency established. IV site checked: no pain, redness, or swelling. IV flushed thoroughly pre- and post-medication administration. IVP given by RN. --17:07 Fauzia Solis R.N. 17:10 01/01/2017 Toradol IVP 30 mg given over 2 minute(s) via site #1. IV patency established. IV site checked: no pain, redness, or swelling. IV flushed thoroughly pre- and post-medication administration. IVP given by RN. --17:10 Fauzia Solis R.N. 17:05 01/01/17. BP: 109/72. --17:10 Fauzia Solis R.N. 18:03 01/01/2017 IV Fluids IV NS Discontinued: bag #1 infused. Total amount infused: 1000 mL. IV patency established. IV site checked: no pain, redness, or swelling. IV flushed thoroughly. --18:03 Fauzia Solis R.N. ( Pt puts on the call light and requests her nurse. RN to bedside, pt states she doesn't feel good and wants to go home. Pt states she understands the process and care is not completed, but she wants to go home. Provider notified. Provider stated she will discharge the pt.). --18:45 Fauzia Solis R.N. 18:45 01/01/2017 Site #1 removed upon discharge. Bandage applied. --18:45 Fauzia Solis R.N. DISPOSITION / DISCHARGE Condition at departure: unchanged and stable. No learning barriers present. Reviewed medication(s). Work note given. Patient verbalized understanding. Written instructions provided in Kosovan. The patient was discharged by the physician personal injury legal assistant. She was discharged home. She left the Emergency Department ambulatory and via private vehicle. Patient driving. --18:46 Fauzia Solis R.N. 18:46 01/01/17. BP: 109/72. HR: 78. RR: 18. O2 saturation: 99%. Pain level now 01/10. --18:46 Fauzia Solis R.N. Locked/Released at 01/01/2017 18:48 by Fauzia Solis R.N.
--- NOTE | 2017-01-01 18:11 | ED CLINICAL REPORT ---
Clinical Report - Physicians/Mid Levels [facility] [address] [place] [address] 01/01/2017 16:05 Patient: GLORIA LI Time Seen: 16:47 Tin 2016. Arrived- By private vehicle. Historian- patient. HISTORY OF PRESENT ILLNESS Chief Complaint: ABDOMINAL PAIN. This started yesterday and is still present. It is described as "pain" and it is described as located in the periumbilical area and in the lower abdomen. The patient has had nausea, vomiting and diarrhea. (patient reports abdominal pain since yesterday, with associated nausea and vomiting and some loose stools. Denies sick contacts. NO chest pain, no sob. NO fever. No cough.). REVIEW OF SYSTEMS No constipation, black stools, difficulty with urination, pain with urination or urinary frequency. No fever, headache, blurred vision, chest pain or difficulty breathing. All systems otherwise negative, except as recorded above. PAST HISTORY Problems: Bronchitis. Throat, sore . Headache. Mastitis. Pharyngitis. UTI - Urinary Tract Infection. Suicide Attempt. Mental Illness. MRSA Infection. Drug Poisoning. LNMP - Last Normal Menstrual Period. Depression. Anxiety Reaction. Bipolar Disorder. Migraine Headache. Ectopic . Additional Surgeries: Breast Augmentation. Dilatation & Curettage. Ectopic . Medications: Fioricet Oral 1 tablet, as needed. Imitrex Oral (Tablet 100 mg) 1 tablet, PRN. LaMICtal Oral 200mg BID. Xanax Oral 0.5 mg, at bedtime. Zofran Oral 4 mg, PRN. Allergies: Penicillin.(rash). SOCIAL HISTORY Alcohol use. History of drug use: marijuana. ADDITIONAL NOTES The nursing notes have been reviewed. PHYSICAL EXAM Vital Signs: 01/01/2017 16:23 BP: 138/104. HR: 76. RR: 18. O2 saturation: 100%. Temp: 98.1 F. Appearance: Alert. Eyes: Eyes normal inspection. ENT: Nose normal. Neck: Normal inspection. No lymphadenopathy or thyromegaly. CVS: Normal heart rate and rhythm. Heart sounds normal. No cardiac murmur. Respiratory: No respiratory distress. Breath sounds normal. Abdomen: Soft. No abdominal tenderness. Back: Normal inspection. No CVA tenderness. Skin: Skin warm. Normal skin color. Neuro: Oriented X 3. LABS, X-RAYS, AND EKG Laboratory Tests: UA-Culture if indicated: (MISSAEL: 01/01/2017 17:30) ( [facility] 01/01/2017 17:58) Final results Test Result Flag Units (Reference) URINE COLOR YELLOW URINE APPEARANCE CLEAR URINE GLUCOSE NEGATIVE (NEGATIVE) URINE BILIRUBIN NEGATIVE (NEGATIVE) URINE KETONE NEGATIVE (NEGATIVE) URINE SPECIFIC GRAVITY 1.020 (1.010-1.030) URINE PH 6.0 (5.0-8.0) URINE PROTEIN NEGATIVE (NEGATIVE) URINE UROBILINOGEN 0.2 EU/dL (0.2-1.0) URINE NITRITE NEGATIVE (NEGATIVE) URINE BLOOD TRACE-INTACT (NEGATIVE) URINE LEUK ESTERASE NEGATIVE (NEGATIVE) URINE RBC 0-1 rbc/hpf (0-1) URINE WBC 0-1 wbc/hpf (0-1) URINE EPITHELIAL CELLS 1-3 EPI/hpf (0-5) URINE BACTERIA FEW (1+) (NONE SEEN) URINE COMMENT CULT NOT INDICATED URINE CULTURES ARE SET-UP BASED ON THE FOLLOWING CRITERIA:POSITIVE NITRITEPOSITIVE LEUKOCYTE ESTERASEGREATER THAN 10 WHITE BLOOD CELLSMODERATE (2+) OR GREATER BACTERIA Urine: (MISSAEL: 01/01/2017 17:30) ( [facility] 01/01/2017 17:48) Final results Test Result Flag Units (Reference) URINE NEGATIVE CBC w Diff: (MISSAEL: 01/01/2017 17:00) ( [facility] 01/01/2017 17:26) Final results Test Result Flag Units (Reference) WHITE BLOOD COUNT 7.7 K/uL (4.5-11.5) RED BLOOD COUNT 4.22 M/uL (4.00-5.20) HEMOGLOBIN 13.0 gm/dL (12.0-16.0) HEMATOCRIT 38.8 % (36.0-46.0) MEAN CELL VOLUME 92 fL (80-100) MEAN CORPUSCULAR HGB 31 pg (26-34) MEAN CORPUSCULAR HGB CONC 34 g/dL (31-37) RED CELL DISTRIBUTION WIDTH 14.2 % (11.6-14.8) PLATELET COUNT 210 K/uL (150-400) NEUTROPHIL % 43.4 L % (50-75) LYMPH % 49.3 H % (25-40) MONO % 4.6 % (3-14) EOSINOPHIL % 1.9 % (0-4) BASOPHIL % 0.8 % (0-2) CMP: (MISSAEL: 01/01/2017 17:00) ( MsgRcvd 01/01/2017 17:34) Final results Test Result Flag Units (Reference) GLUCOSE 84 mg/dL (70-110) BUN 9 mg/dL (7-18) CREATININE 0.7 mg/dL (0.6-1.3) Estimated GFR >60 mL/min Estimated GFR- >60 mL/min Note: Persistent reduction over 3 months in eGFR<60 mL/min/1.73 m2 defines CKD. Patients with eGFR values>=60 mL/min/1.73 m2 may also have CKD if evidence ofpersistent proteinuria. Additional information may be foundat www.kidney.org. SODIUM 139 mmol/L (136-145) POTASSIUM 3.6 mmol/L (3.5-5.1) CHLORIDE 103 mmol/L (98-107) CARBON DIOXIDE 23 mmol/L (21-32) CALCIUM 8.8 mg/dL (8.5-10.1) TOTAL PROTEIN 7.9 g/dL (6.4-8.2) ALBUMIN 4.2 g/dL (3.3-5.0) BILIRUBIN, TOTAL 0.2 mg/dL (0.0-1.0) ALKALINE PHOSPHATASE 93 U/L (46-116) AST (SGOT) 24 U/L (15-37) ALT (SGPT) 106 H U/L (12-78) LIPASE 149 U/L (73-393) . PROGRESS AND PROCEDURES Course of Care: patient with a soft abdomen, no CVA tenderness, no signs of surgical abdomen. Labs unremarkable. Patient with no signs of acute surgical abdomen at this time. Patient very stable. Euvolemic, given IV fluid in the emergency department. Patient wishes to go home, which I find reasonable. No recent exposures or recent antibiotic, C. difficile less suspicious. Patient stable to fu/u outpatient. 01/01/2017 16:23 BP: 138/104. HR: 76. RR: 18. O2 saturation: 100%. Temp: 98.1 F. Patient is stable. Physical exam findings are improved. Symptoms better. Patient/family counseled. Differential Diagnosis: Differential diagnosis was discussed with patient. Disposition: Discharged. Condition: good. CLINICAL IMPRESSION Vomiting with nausea. Diarrhea Abdominal pain of unknown cause. INSTRUCTIONS Do not work today, tomorrow. Drink plenty of fluids. Warnings: Further evaluation is necessary. Prescription Medications: Hydrocodone/APAP 5mg / 325mg: take 1 orally every 8 hours as needed for pain. Dispense ten (10). No refill. Zofran (orally disintegrating tablets) 4 mg: take 1 orally every 6 hours for 3 days as needed for nausea. Dispense fifteen (15). No refill. Substitution is permissible. OTC Medications: Imodium (available over the counter): take according to label instructions. Follow-up: Follow up with your doctor Thursday. Understanding of the discharge instructions verbalized by patient. (Electronically signed by Rosaura Narayan P.A.-C 01/01/2017 18:38)
--- NOTE | 2017-01-01 18:11 | ED ORDER SUMMARY ---
..... Patient: GLORIA LI OrderSheet [facility] VisitID: [id number] [address] [place] [address] 36y, F Registration Date/Time: 01/01/2017 ORDER SHEET Weight: 58.5 kg (stated) Allergies: Penicillin GENERAL ORDERS: CBC w Diff Urgent (16:33 01/01/2017 EKoroleva P.A.-C) (Ack 16:44 KHoerner) (17:06 SBalde R.N.) CMP Urgent (16:33 01/01/2017 EKoroleva P.A.-C) (Ack 16:44 KHoerner) (17:06 SBalde R.N.) UA-Culture if indicated Urgent (16:33 01/01/2017 EKoroleva P.A.-C) (Ack 16:44 KHoerner) (17:51 SBalde R.N.) Lipase Urgent (16:33 01/01/2017 EKoroleva P.A.-C) (Ack 16:44 KHoerner) (17:06 SBalde R.N.) Urine Urgent (16:33 01/01/2017 EKoroleva P.A.-C) (Ack 16:44 KHoerner) (17:51 SBalde R.N.) MEDICATION ORDERS: IV FLUIDS: IV NS : initial bolus 1000 mL (1000 mL/hr), then 1000 mL/hr for X1 (NOW); Bishnu (16:33 01/01/2017 EKoroleva P.A.-C) (17:06 SBalde R.N.) Toradol IV 30 mg (NOW) (16:39 01/01/2017 EKoroleva P.A.-C) (17:10 SBalde R.N.) Zofran IV 8 mg (NOW) (16:39 01/01/2017 EKoroleva P.A.-C) (17:07 SBalde R.N.) ORDER SHEET NOTES: [Electronically signed by Rosaura Narayan PJuliaAJulia-C (18:38 01/01/2017)] [Electronically signed by Fauzia Solis R.N. (18:48 01/01/2017)] [Electronically locked/signed by Fauzia Solis R.N. (18:48 01/01/2017)]
--- NOTE | 2017-01-01 18:52 | ED MED RECONCILIATION SUMMARY ---
Patient: GLORIA LI Medication Reconciliation Report [facility] VisitID: [id number] [address] [place] [address] 36y, F Registration Date/Time: 01/01/2017 Weight: 58.5 kg Height/Length: 62 in. BMI: 23.6 ALLERGIES: Penicillin The patient's Home Medications are listed below: THE FOLLOWING MEDICATIONS NEED TO BE RECONCILED: Fioricet Oral 1 tablet Imitrex Oral (100 mg) 1 tablet, PRN LaMICtal Oral 200mg BID Xanax Oral 0.5 mg, at bedtime Zofran Oral 4 mg, PRN The source(s) of the original Home Medication information: patient The following Medications were given to the patient in the Emergency Department: IV NS IV Fluids bolus 0, then 1000 mL/hr, administered: 01/01/2017 5:06:00 PM Zofran [IVP] IVP 8 mg, administered: 01/01/2017 5:07:00 PM Toradol [IVP] IVP 30 mg, administered: 01/01/2017 5:10:00 PM The following Medications were prescribed to the patient: Hydrocodone/APAP 5mg / 325mg: take 1 orally every 8 hours as needed for pain. Dispense ten (10). No refill. -- Rosaura Narayan P.A.-Prabha Zofran (orally disintegrating tablets) 4 mg: take 1 orally every 6 hours for 3 days as needed for nausea. Dispense fifteen (15). No refill. Substitution is permissible. -- Rosaura Narayan P.A.-Prabha Imodium (available over the counter): take according to label instructions. -- Rosaura Narayan P.A.-C
--- NOTE | 2017-01-01 18:52 | ED DISCHARGE INSTRUCTIONS ---
Patient: GLORIA LI General Instructions Merged With [facility] VisitID: [id number] [place] [address] 36y, F Registration Date/Time: 01/01/2017 Vomiting with nausea. Diarrhea Abdominal pain of unknown cause. INSTRUCTIONS Do not work today, tomorrow. Drink plenty of fluids. Warnings: Further evaluation is necessary. Prescription Medications: Hydrocodone/APAP 5mg / 325mg: take 1 orally every 8 hours as needed for pain. Dispense ten (10). No refill. Zofran (orally disintegrating tablets) 4 mg: take 1 orally every 6 hours for 3 days as needed for nausea. Dispense fifteen (15). No refill. Substitution is permissible. OTC Medications: Imodium (available over the counter): take according to label instructions. Follow-up: Follow up with your doctor Thursday. Understanding of the discharge instructions verbalized by patient. ADDITIONAL INFORMATION Vomiting [6Yr-Adult] Vomiting is a common symptom that may be due to different causes. These include gastroenteritis ("stomach flu"), food poisoning and gastritis. There are other more serious causes of vomiting which may be hard to diagnose early in the illness. Therefore, it is important to watch for the warning signs listed below. The main danger from repeated vomiting is dehydration. This is due to excess loss of water and minerals from the body. When this occurs, body fluids must be replaced. Home Care: If symptoms are severe, rest at home for the next 24 hours. You may use acetaminophen (Tylenol) or ibuprofen (Motrin, Advil) to control fever, unless another medicine was prescribed. [NOTE : If you have chronic liver or kidney disease or ever had a stomach ulcer or GI bleeding, talk with your doctor before using these medicines.] (Aspirin should never be used in anyone under 18 years of age who is ill with a fever. It may cause severe liver damage.) Avoid tobacco and alcohol use, which may worsen your symptoms. If medicines for vomiting were prescribed, take as directed. Once vomiting stops, then follow these guidelines: During The First 12-24 Hours follow the diet below: FRUIT JUICES: Apple, grape juice, clear fruit drinks, and electrolyte replacement drinks. BEVERAGES: Soft drinks without caffeine; mineral water (plain or flavored), decaffeinated tea and coffee. SOUPS: Clear broth, consomm and bouillon DESSERTS: Plain gelatin, popsicles and fruit juice bars. As you feel better, you may add 6-8 ounces of yogurt per day. During The Next 24 Hours you may add the following to the above: Hot cereal, plain toast, bread, rolls, crackers Plain noodles, rice, mashed potatoes, chicken noodle or rice soup Unsweetened canned fruit (avoid pineapple), bananas Limit caffeine and chocolate. No spices or seasonings except salt. During The Next 24 Hours Gradually resume a normal diet, as you feel better and your symptoms lessen. Follow Up with your doctor as advised if you are not improving over the next 2-3 days. Get Prompt Medical Attention if any of the following occur: Constant right-sided lower abdominal pain or increasing general abdominal pain Continued vomiting (unable to keep liquids down) for 24 hours Frequent diarrhea (more than 5 times a day); blood (red or black color) or mucus in diarrhea Reduced urine output or extreme thirst Weakness, dizziness or fainting Unusually drowsy or confused Fever of 100.4F (38C) oral or higher, not better with fever medication Yellow color of the eyes or skin Diarrhea, Uncertain Cause (Adult, Report Pending) Diarrhea has several possible causes. Commonstomach fluis caused by a virus. Food poisoning, bacteria or parasites are other causes for diarrhea. Only diarrhea caused by bacteria or parasites requires treatment with an antibiotic. Diarrhea from a virus or food poisoning improves with simple home treatment. A stool sample is needed to make the diagnosis of an infection with bacteria or parasites. Up to three stool specimens may be required to diagnose This may take up to two days to get the result. It may be necessary to wait until the stool test is complete to make the diagnosis and select the best antibiotic to prescribe. Home Care: If symptoms are severe, rest at home for the next 24 hours or until you are feeling better. You may use acetaminophen (Tylenol) or ibuprofen (Motrin, Advil) to control fever, unless another medicine was prescribed. [NOTE: If you have chronic liver or kidney disease or ever had a stomach ulcer or GI bleeding, talk with your doctor before using these medicines.] (Aspirin should never be used in anyone under 18 years of age who is ill with a fever. It may cause severe liver damage.) Avoid tobacco, caffeine and alcohol, which may worsen your symptoms. If anti-diarrhea medicine was prescribed, take this only as directed. Sometimes anti-diarrhea medicine can make your condition worse if the cause is an infectious diarrhea. Therefore, anti-diarrhea medicine should not be taken for this condition unless advised by your doctor. During The First 12-24 Hours follow the diet below: BEVERAGES: Sport drinks like Gatorade, soft drinks without caffeine; sally laura, mineral water (plain or flavored), decaffeinated tea and coffee. SOUPS: Clear broth, consomm and bouillon DESSERTS: Plain gelatin (Jell-O), popsicles and fruit juice bars. During The Next 24 Hours you may add the following to the above: Hot cereal, plain toast, bread, rolls, crackers Plain noodles, rice, mashed potatoes, chicken noodle or rice soup Unsweetened canned fruit (avoid pineapple), bananas Limit fat intake to less than 15 grams per day by avoiding margarine, butter, oils, mayonnaise, sauces, gravies, fried foods, peanut butter, meat, poultry and fish. Limit fiber; avoid raw or cooked vegetables, fresh fruits (except bananas) and bran cereals. Limit caffeine and chocolate. No spices or seasonings except salt. During The Next 24 Hours Gradually resume a normal diet, as you feel better and your symptoms lessen. Follow Up with your doctor or as advised if you are not improving over the next two days. If you were asked to bring a specimen from home, bring the sample on the day of collection. You may call in 2 days (or as directed) for the results. Get Prompt Medical Attention if any of the following occur: Increasing abdominal pain or constant lower right abdominal pain Continued vomiting (unable to keep liquids down) Frequent diarrhea (more than 5 times a day) Blood in vomit or stool (black or red color) Reduced oral intake Dark urine, reduced urine output Weakness, dizziness, fainting Drowsiness, confusion, stiff neck or seizure Fever of 100.4F (38C) oral or higher, not better with fever medication New rash Abdominal Pain, Unknown Cause (Female) The exact cause of your abdominal (stomach) pain is not certain. This does not mean that this is something to worry about, or the right tests were not done. Everyone likes to know the exact cause of the problem, but sometimes with abdominal pain, there is no clear-cut cause, and this could be a good thing. The good news is that your symptoms can be treated, and you will feel better. Your condition does not seem serious now; however, sometimes the signs of a serious problem may take more time to appear. For this reason,it is important for you to watch for any new symptoms, problems,or worsening of your condition. Over the next few days, the abdominal pain may come and go, or be continuous. Other common symptoms can include nausea and vomiting. Sometimes it can be difficult to tell if you feel nauseous, you may just feel bad and not associate that feeling with nausea. Constipation, diarrhea, and a fever may go along with the pain. The pain may continue even if treated correctly over the following days. Depending on how things go, sometimes the cause can become clear and may require further or different treatment. Additional evaluations, medications, or tests may be needed. Home care Your health care provider may prescribe medications for pain, symptoms, or an infection. Follow the health care provider's instructions for taking these medications. General care Rest until your next exam. No strenuous activities. Try to find positions that ease discomfort. A small pillow placed on the abdomen may help relieve pain. Something warm on your abdomen (such as a heating pad) may help, but be careful not to burn yourself. Diet Do not force yourself to eat, especially if having cramps, vomiting, or diarrhea. Water is important so you do not get dehydrated. Soup may also be good. Sports drinks may also help, especially if they are not too acidic. Make sure you don't drink sugary drinks as this can make things worse. Take liquids in small amounts. Do not guzzle them. Caffeine sometimes makes the pain and cramping worse. Avoid dairy products if you have vomiting or diarrhea. Don't eat large amounts at a time. Wait a few minutes between bites. Eat a diet low in fiber (called a low-residue diet). Foods allowed include refined breads, white rice, fruit and vegetable juices without pulp, tender meats. These foods will pass more easily through the intestine. Avoid whole-grain foods, whole fruits and vegetables, meats, seeds and nuts, fried or fatty foods, dairy, alcohol and spicy foods until your symptoms go away. Follow-up care Follow up with your health care provider as instructed, or if your pain does not begin to improve in the next 24 hours. When to seek medical care Seek prompt medical care if any of the following occur: Pain gets worse or moves to the right lower abdomen New or worsening vomiting or diarrhea Swelling of the abdomen Unable to pass stool for more than three days Fever of 100.4F (38C) or higher, or as directed by your healthcare provider. Blood in vomit or bowel movements (dark red or black color) Jaundice (yellow color of eyes and skin) Weakness, dizziness Chest, arm, back, neck or jaw pain Unexpected vaginal bleeding or missed period Call 911 Call emergency services if any of the following occur: Trouble breathing Confusion Fainting or loss of consciousness Rapid heart rate Seizure Symptoms With Uncertain Cause [Adult] Based on the exam and any tests that were performed today, the exact cause of your symptoms is not certain. While your condition does not seem serious, the signs of a serious problem may take more time to appear. Therefore, it is important for you to watch for any new symptoms or worsening of your condition.Follow up with your doctor or this facility, as directed.A repeat physical exam or additional testing at a later time may uncover a cause for your symptoms that is not evident today. Home Care: Resume your usual activities and diet when this feels comfortable to do so. Follow Up with your doctor, or as advised by our staff.Contact your doctor sooner if your symptoms do not begin to improve in the next few days. [NOTE: If you had an x-ray, CT scan, ultrasound, or ECG (electrocardiogram), it will be reviewed by a specialist. You will be notified of any new findings that may affect your care.] Get Prompt Medical Attention if any of the following occur: Current symptoms get worse New symptoms appear [place] Diet A bland diet is used for patients with an upset stomach. It consists of foods that are mild and easy to digest. It is better to eat small frequent meals rather than three large meals a day. BEVERAGES OK: Fruit juices, non-caffeinated teas and coffee, non-carbonated colvin AVOID: Carbonated beverage, caffeinated tea and coffee, all alcoholic beverages BREAD OK: Refined white, wheat or rye bread, thuan or soda crackers, Gina toast, plain rolls, bagels AVOID: Whole-grain bread CEREAL OK: Refined cereals: cooked or ready to eat AVOID: Whole grain cereals and granola, or those containing bran, seeds or nuts DESSERTS OK: Peanut butter and all others except those to "avoid" AVOID: Chocolate, cocoa, coconut, popcorn, nuts, seeds, jam, marmalade FRUITS OK: Canned, cooked, frozen or fresh fruits without seeds or tough skin AVOID: Olives, skin and seeds of fruit MEATS OK: All fresh or preserved meat, fish and fowl AVOID: Any that are prepared with those spices to "avoid" CHEESE & EGGS OK: Eggs, cottage cheese, cream cheese, other cheeses AVOID: All cheeses made with those spices to "avoid" POTATOES & PASTA OK: Potato, rice, macaroni, noodles, spaghetti AVOID: None SOUPS OK: All soups without heavy seasoning AVOID: Soups made with those spices to "avoid" VEGETABLES OK: Canned, cooked, fresh or frozen mildly flavored vegetables without seeds, skins or coarse fiber AVOID: Vegetables prepared with those spices to "avoid"; skin and seeds of vegetables and those with coarse fiber SPICES OK: Salt, lemon and sun'aq juice, vinegar, all extracts, marcella, cinnamon, thyme, mace, allspice, paprika AVOID: [place] powder, cloves, pepper, seed spices, garlic, gravy pickles, highly seasoned salad dressings Clear Liquid Diet Clear liquids are any liquid that you can see through as well as those that are very easy to digest. This is used while the body is recovering from irritation or infection of the stomach or intestinal tract. It may also be used before special procedures or surgery. This diet is to be used no more than three days. You may include the following items. Adults Adults should drink a total of 23 quarts of liquid per day. It may be easier to drink small frequent servings rather than a few large ones. Liquids can include: Fruit juices.Strained orange juice or lemonade (no pulp), apple, grape and cranberry juice, clear fruit drinks, sports drinks Beverages.Sport drinks, sodas, mineral water (plain or flavored), tea, black coffee, liquid gelatin (add twice the recommended amount of water) Soups.Clear broth, consomm, bouillon Desserts.Plain gelatin, popsicles, fruit juice bars Children Over 2 years old The following liquids are acceptable for children over age 2: Fruit juices.Strained orange juice or lemonade (no pulp), apple, grape and cranberry juice, clear fruit drinks Beverages. Sports drinks, sodas, mineral water (plain or flavored), tea, liquid gelatin (add twice the recommended amount of water) Soups. Clear broth, consomm, bouillon Desserts. Plain gelatin, popsicles, fruit juice bars Children under 2 years old Oral rehydration fluids such are available at drug stores and most grocery stores without a prescription. Hydrocodone Bitartrate, Acetaminophen Oral tablet What is this medicine? ACETAMINOPHEN; HYDROCODONE (a set a PATRICIA sabrina fen; zeeshan droe KOE done) is a pain reliever. It is used to treat mild to moderate pain. How should I use this medicine? Take this medicine by mouth. Swallow it with a full glass of water. Follow the directions on the prescription label. If the medicine upsets your stomach, take the medicine with food or milk. Do not take more than you are told to take. Talk to your tourism radio presenter regarding the use of this medicine in children. This medicine is not approved for use in children. What side effects may I notice from receiving this medicine? Side effects that you should report to your doctor or health animal care technician as soon as possible: allergic reactions like skin rash, itching or hives, swelling of the face, lips, or tongue breathing problems confusion feeling faint or lightheaded, falls stomach pain yellowing of the eyes or skin Side effects that usually do not require medical attention (report to your doctor or health animal care technician if they continue or are bothersome): nausea, vomiting stomach upset What may interact with this medicine? alcohol antihistamines isoniazid medicines for depression, anxiety, or psychotic disturbances medicines for sleep muscle relaxants naltrexone narcotic medicines (opiates) for pain phenobarbital ritonavir tramadol What if I miss a dose? If you miss a dose, take it as soon as you can. If it is almost time for your next dose, take only that dose. Do not take double or extra doses. Where should I keep my medicine? Keep out of the reach of children. This medicine can be abused. Keep your medicine in a safe place to protect it from theft. Do not share this medicine with anyone. Selling or giving away this medicine is dangerous and against the law. Store at room temperature between 15 and 30 degrees C (59 and 86 degrees F). Protect from light. Keep container tightly closed. Throw away any unused medicine after the expiration date. Discard unused medicine and used packaging carefully. Pets and children can be harmed if they find used or lost packages. What should I tell my health care provider before I take this medicine? They need to know if you have any of these conditions: brain tumor Crohn's disease, inflammatory bowel disease, or ulcerative colitis drink more than 3 alcohol-containing drinks per day drug abuse or addiction head injury heart or circulation problems kidney disease or problems going to the bathroom liver disease lung disease, asthma, or breathing problems an unusual or allergic reaction to acetaminophen, hydrocodone, other opioid analgesics, other medicines, foods, dyes, or preservatives or trying to get breast-feeding What should I watch for while using this medicine? Tell your doctor or health animal care technician if your pain does not go away, if it gets worse, or if you have new or a different type of pain. You may develop tolerance to the medicine. Tolerance means that you will need a higher dose of the medicine for pain relief. Tolerance is normal and is expected if you take the medicine for a long time. Do not suddenly stop taking your medicine because you may develop a severe reaction. Your body becomes used to the medicine. This does NOT mean you are addicted. Addiction is a behavior related to getting and using a drug for a non-medical reason. If you have pain, you have a medical reason to take pain medicine. Your doctor will tell you how much medicine to take. If your doctor wants you to stop the medicine, the dose will be slowly lowered over time to avoid any side effects. You may get drowsy or dizzy when you first start taking the medicine or change doses. Do not drive, use machinery, or do anything that may be dangerous until you know how the medicine affects you. Stand or sit up slowly. There are different types of narcotic medicines (opiates) for pain. If you take more than one type at the same time, you may have more side effects. Give your health care provider a list of all medicines you use. Your doctor will tell you how much medicine to take. Do not take more medicine than directed. Call emergency for help if you have problems breathing. The medicine will cause constipation. Try to have a bowel movement at least every 2 to 3 days. If you do not have a bowel movement for 3 days, call your doctor or health animal care technician. Too much acetaminophen can be very dangerous. Do not take Tylenol (acetaminophen) or medicines that contain acetaminophen with this medicine. Many non-prescription medicines contain acetaminophen. Always read the labels carefully. Ondansetron Hydrochloride Oral tablet What is this medicine? ONDANSETRON (on ISABEL se phuong) is used to treat nausea and vomiting caused by chemotherapy. It is also used to prevent or treat nausea and vomiting after surgery. How should I use this medicine? Take this medicine by mouth with a glass of water. Follow the directions on your prescription label. Take your doses at regular intervals. Do not take your medicine more often than directed. Talk to your tourism radio presenter regarding the use of this medicine in children. Special care may be needed. What side effects may I notice from receiving this medicine? Side effects that you should report to your doctor or health animal care technician as soon as possible: allergic reactions like skin rash, itching or hives, swelling of the face, lips or tongue breathing problems dizziness fast or irregular heartbeat feeling faint or lightheaded, falls fever and chills swelling of the hands or feet tightness in the chest Side effects that usually do not require medical attention (report to your doctor or health animal care technician if they continue or are bothersome): constipation or diarrhea headache What may interact with this medicine? Do not take this medicine with any of the following medications: -apomorphine -cisapride -dofetilide -dronedarone -pimozide -thioridazine -ziprasidone This medicine may also interact with the following medications: -carbamazepine -phenytoin -rifampicin -tramadol -other medicines that prolong the QT interval (cause an abnormal heart rhythm) What if I miss a dose? If you miss a dose, take it as soon as you can. If it is almost time for your next dose, take only that dose. Do not take double or extra doses. Where should I keep my medicine? Keep out of the reach of children. Store between 2 and 30 degrees C (36 and 86 degrees F). Throw away any unused medicine after the expiration date. What should I tell my health care provider before I take this medicine? They need to know if you have any of these conditions: heart disease history of irregular heartbeat liver disease low levels of magnesium or potassium in the blood an unusual or allergic reaction to ondansetron, granisetron, other medicines, foods, dyes, or preservatives or trying to get breast-feeding What should I watch for while using this medicine? Check with your doctor or health animal care technician right away if you have any sign of an allergic reaction. You have been given the following additional information: Vomiting (6Y-Adult) Diarrhea, Unk Cause (Adult) Report Pendg Abdominal Pain, Unknown Cause, (Female) Symptoms With Uncertain Cause Diet, [place] (Adult) Diet, Clear Liquid Hydrocodone Bitartrate, Acetaminophen Oral tablet Ondansetron Hydrochloride Oral tablet Do not work today, tomorrow. (Electronically signed by Rosaura Narayan P.A.-C 01/01/2017 18:38)
--- NOTE | 2017-01-01 18:52 | ED MAR SUMMARY ---
..... Medication Administration Record [facility] [address] [place] [address] Patient: GLORIA LI Visit ID: [id number] 36y, F Weight: 58.5 kg Height/Length: 62 in BMI: 23.6 ALLERGIES: Penicillin Start 17:06 01/01/2017 Fauzia Solis R.N., Stop 18:03 01/01/2017 Fauzia Solis R.N. Medication Administered: IV NS (SALINE), Dose: IV Fluids over 1 hour(s), Rate: 1000 mL/hr, Dispensed: 1000 mL bag, Site: #1 right AC. Medication Ordered: IV NS : initial bolus 1000 mL (1000 mL/hr), then 1000 mL/hr for X1 (NOW); Bishnu. Given 17:07 01/01/2017 Fauzia Solis R.N. Medication Administered: ZOFRAN [IVP] (ONDANSETRON HCL), Dose: 8 mg IVP over 4 minute(s), Site: #1 right AC. Medication Ordered: Zofran IV 8 mg (NOW). Given 17:10 01/01/2017 Fauzia Solis R.N. Medication Administered: TORADOL [IVP], Dose: 30 mg IVP over 2 minute(s), Site: #1 right AC. Medication Ordered: Toradol IV 30 mg (NOW).
--- NOTE | 2017-01-01 18:52 | ED MED RECONCILIATION SUMMARY ---
Patient: GLORIA LI Medication Reconciliation Report [facility] VisitID: [id number] [address] [place] [address] 36y, F Registration Date/Time: 01/01/2017 Weight: 58.5 kg Height/Length: 62 in. BMI: 23.6 ALLERGIES: Penicillin The patient's Home Medications are listed below: THE FOLLOWING MEDICATIONS NEED TO BE RECONCILED: Fioricet Oral 1 tablet Imitrex Oral (100 mg) 1 tablet, PRN LaMICtal Oral 200mg BID Xanax Oral 0.5 mg, at bedtime Zofran Oral 4 mg, PRN The source(s) of the original Home Medication information: patient The following Medications were given to the patient in the Emergency Department: IV NS IV Fluids bolus 0, then 1000 mL/hr, administered: 01/01/2017 5:06:00 PM Zofran [IVP] IVP 8 mg, administered: 01/01/2017 5:07:00 PM Toradol [IVP] IVP 30 mg, administered: 01/01/2017 5:10:00 PM The following Medications were prescribed to the patient: Hydrocodone/APAP 5mg / 325mg: take 1 orally every 8 hours as needed for pain. Dispense ten (10). No refill. -- Rosaura Narayan P.A.-Prabha Zofran (orally disintegrating tablets) 4 mg: take 1 orally every 6 hours for 3 days as needed for nausea. Dispense fifteen (15). No refill. Substitution is permissible. -- Rosaura Narayan P.A.-Prabha Imodium (available over the counter): take according to label instructions. -- Rosaura Narayan P.A.-C
--- NOTE | 2017-01-01 18:52 | ED MAR SUMMARY ---
..... Medication Administration [facility] [address] [address] Patient: GLORIA LI Visit ID: [id number] 36y, F Weight: 58.5 kg Height/Length: 62 in BMI: 23.6 ALLERGIES: Penicillin Start 17:06 01/01/2017 Fauzia Solis R.N., Stop 18:03 01/01/2017 Fauzia Solis R.N. Medication Administered: IV NS (SALINE), Dose: IV Fluids over 1 hour(s), Rate: 1000 mL/hr, Dispensed: 1000 mL bag, Site: #1 right AC. Medication Ordered: IV NS : initial bolus 1000 mL (1000 mL/hr), then 1000 mL/hr for X1 (NOW); Bishnu. Given 17:07 01/01/2017 Fauzia Solis R.N. Medication Administered: ZOFRAN [IVP] (ONDANSETRON HCL), Dose: 8 mg IVP over 4 minute(s), Site: #1 right AC. Medication Ordered: Zofran IV 8 mg (NOW). Given 17:10 01/01/2017 Fauzia Solis R.N. Medication Administered: TORADOL [IVP], Dose: 30 mg IVP over 2 minute(s), Site: #1 right AC. Medication Ordered: Toradol IV 30 mg (NOW).
== END 2017-01-01 18:40 | disposition home or self-care (01) ==
LOC: ED SRH 16:05
DX: R10.33 Periumbilical pain (principal); R11.2 Nausea with vomiting, unspecified; R19.7 Diarrhea, unspecified; Z79.899 Other long term (current) drug therapy; Z88.0 Allergy status to penicillin
CPT/HCPCS: 90004; 90100; 92235; 93070; 95059

== ENCOUNTER 2017-01-29 22:14 | Emergency (ER) | payer OTHER ==
--- NOTE | 2017-01-30 04:40 | ED ORDER SUMMARY ---
..... Patient: GLORIA LI OrderSheet [facility] VisitID: [id number] [place] [address] 36y, F Registration Date/Time: 01/29/2017 ORDER SHEET Weight: 58.9 kg (stated) Allergies: Penicillin GENERAL ORDERS: Bartender Manager (Continuous) (poss OD) (22:01/29/2017 Anthony Ryan) (22:31 MCook R.N.) CBC w Diff Urgent (22:01/29/2017 Anthony Ryan) (Ack 22:39 LMuller) (22:43 MCook R.N.) CMP Urgent (22:01/29/2017 Anthony Ryan) (Ack 22:39 LMuller) (22:43 MCook R.N.) UA-Culture if indicated Urgent (22:01/29/2017 Anthony Ryan) (Ack 22:39 LMuller) (1:58 CBradburn R.N.) Urine Drug Screen Urgent (22:30 01/29/2017 Anthony Ryan) (Ack 22:39 LMuller) (1:58 CBradburn R.N.) Urine Urgent (22:01/29/2017 Anthony Ryan) (Ack 22:39 LMuller) (1:58 CBradburn R.N.) PT with INR Urgent (22:01/29/2017 Anthony Ryan) (Ack 22:39 LMuller) (22:43 MCook R.N.) PTT Urgent (22:01/29/2017 Anthony Ryan) (Ack 22:39 LMuller) (22:43 MCook R.N.) Ethyl Alcohol Urgent (22:01/29/2017 Anthony Ryan) (Ack 22:39 LMuller) (22:43 MCook R.N.) Acetaminophen Level Urgent (22:01/29/2017 Anthony Ryan) (Ack 22:39 LMuller) (22:43 MCook R.N.) Salicylate Level Urgent (22:01/29/2017 Anthony Ryan) (Ack 22:39 LMuller) (22:43 MCook R.N.) Pulse oximeter (22:30 01/29/2017 Anthony Ryan) (22:31 MCook R.N.) EKG - ER Stat (22:30 01/29/2017 Anthony Ryan) (Ack 22:39 LMuller) (22:43 MCook R.N.) (22:43 LMuller) MEDICATION ORDERS: IV FLUIDS: IV NS : initial bolus 1000 mL (1000 mL/hr), then none - for X1 (NOW) (22:30 01/29/2017 Anthony Ryan) (22:48 MCook R.N.) ORDER SHEET NOTES: [Electronically signed by Christel Gomez R.N. (05:03 01/30/2017)] [Electronically signed by Palmer Norton Dr. (05:32 01/31/2017)] [Electronically locked/signed by Christel Gomez R.N. (05:03 01/30/2017)]
--- NOTE | 2017-01-30 04:40 | ED NURSING NOTES ---
Clinical Report - Nurses [facility] [address] [place] [address] 01/29/2017 22:14 Patient: GLORIA LI TRIAGE Triage time 22:Jan 29 2017. Acuity: LEVEL 3. Chief Complaint: DEPRESSION and ANXIETY. --22:29 Rajesh Oliva R.N. 22:22 01/29/17. BP: 98/64. HR: 98. RR: 16. O2 saturation: 99% on room air. Temp: 98.2 F. Pain level now: 0/10. --22:29 Rajesh Oliva R.N. Weight: 58.9 kg stated. Height/Length: 63 inches Per Patient. BMI: 23. --22:21 Rajesh Oliva R.N. Medications LaMICtal Oral. --22:26 Rajesh Oliva R.N. Xanax. --22:26 Rajesh Oliva R.N. SEROquel Oral. --01:00 Kelly Poe R.N. Allergies Penicillin. --22:25 Rajesh Oliva R.N. History Arrived by private vehicle. Historian: patient (friend). Accompanied by friend. Onset: today. ( Pt has been very stressed with work and with a S/O, she states she has just felt uncontrolled anxiety, took roughly 25 pills today (new Rx filled today for 60 tablets of Xanax). She denies suicidal ideation or thoughts of harming herself.). She has had anxiety and describes feelings of depression. PAST MEDICAL HX: Immunizations: up-to-date. SOCIAL HX: Heavy tobacco smoker- 1 pack per day. No alcohol use or drug use. No infectious disease exposure. SELF HARM ASSESSMENT: A self harm assessment was performed. The patient answered "yes" to the question "Have you recently felt down, depressed, or hopeless?", "Have you noticed less interest or pleasure in doing things?", "Are you here because you tried to hurt yourself?" and "Have you ever tried to hurt yourself before today?" and "no" to the question "Do you have thoughts of harming or killing yourself?", "Have you recently had thoughts about harming or killing others?" and "Do you have any dangerous items in your possession?". The friend reported the patient's behavior as aggressive and included suicidal comments. In the ED the patient has made suicidal comments and sustained a self inflicted injury. A further in-depth assessment is planned. She has been placed under continuous supervision with a friend at bedside. She was placed in direct sight of the nurses station. Clothes and valuables were removed and placed at the nurses station. The ED physician has been notified. FALL RISK ASSESSMENT: Fall risk assessment completed. No fall risk identified. NUTRITIONAL RISK ASSESSMENT: The nutritional risk assessment revealed no deficiencies. FUNCTIONAL ASSESSMENT: Functional assessment: no impairments noted. LEARNING NEEDS ASSESSMENT: The learning needs assessment revealed no barriers. SKIN INTEGRITY ASSESSMENT: Skin integrity risk assessment completed. No skin integrity risk identified. --22:29 Rajesh Oliva R.N. PROBLEMS: Abdominal Pain. Vomiting. Diarrhea. Bronchitis. Throat, sore . Headache. Mastitis. Pharyngitis. UTI - Urinary Tract Infection. Suicide Attempt. Mental Illness. MRSA Infection. Drug Poisoning. LNMP - Last Normal Menstrual Period. Depression. Anxiety Reaction. Bipolar Disorder. Migraine Headache. Ectopic . --22:26 Rajesh Oliva R.N. ADDITIONAL SURGERIES: Breast Augmentation. Dilatation & Curettage. Ectopic . --22:26 Rajesh Oliva R.N. Interventions ID band on patient. To treatment room. --22:29 Rajesh Oliva R.N. PHYSICAL ASSESSMENT Ambulatory to room. GENERAL / NEURO / PSYCH: Decreased awareness (drowsy and lethargic). The patient is disoriented to place, time and situation. Patient's speech is slurred. Patient's mood/affect appears flat. RESPIRATORY: Respirations not labored. CVS: Capillary refill less than 2 seconds. SKIN: Skin intact. Skin is warm and dry. Skin color is within normal limits. --22:30 Rajesh Oliva R.N. NURSING PROGRESS NOTES The plan of care for this patient has been created. Monitoring of patient in place. Patient gowned. Head of bed elevated. Suicide precautions initiated. Two patient identifiers checked. Call light placed in reach. Side rails up x 2. Bed placed in lowest position. Brakes of bed on. Patient ready for evaluation- chart flagged. --22:31 Rajesh Oliva R.N. EKG time: (2241). EKG was ordered, performed by a tech and shown to the ED physician. --22:44 Samy Atkinson, MELISA Dry Cell And Battery Assembler 22:48 01/29/2017 Site #1 started via IV in the right hand with an 20g angiocath, with aseptic technique and good blood return; one attempt. Blood drawn: rainbow set. Labeled in the presence of the patient and sent to the lab. Saline lock flushed with 10 mL saline. --22:48 Rajesh Oliva R.N. 22:48 01/29/2017 Started bag #1 1000 mL IV Fluids IV NS (Saline); bolus of 1000 mL wide open via site #1. Allergies verified and confirmed 5 rights. IV patency established. IV site checked: no pain, redness, or swelling. IV flushed thoroughly pre- and post-medication administration. Completed per protocol. --22:48 Rajesh Oliva R.N. ( Pt is very somnolent, awakens to physical stimuli but with difficulty, sats stable on RA, VSS, monitoring in place, Pt's sister at bedside. Pt denies trying to harm herself but Pt's sister states that Pt came to her house tonight post Xanax ingestion claiming that she wants "to go to sleep and never wake up."). --22:50 Rajesh Oliva R.N. 22:53 01/29/17. BP: 104/64. HR: 87. RR: 14. O2 saturation: 99% on room air. --22:54 Rajesh Oliva R.N. 23:03 01/29/17. BP: 95/50. HR: 88. O2 saturation: 96% on room air. --23:03 Rajesh Oliva R.N. 23:39 01/29/17. BP: 98/55. HR: 89. RR: 19. O2 saturation: 96% on room air. --23:41 Rajesh Oliva R.N. ( Pt continues to rest comfortably, VSS, no apparent needs, WCTM.). --23:41 Rajesh Oliva R.N. ( MD in to try to assess Pt, she is somnolent, unable to arouse, VSS, 02 sats at 97%, monitoring in place, per MD, wait until Pt is arousable to complete eval.). --00:11 Rajesh Oliva R.N. 00:13 01/30/17. BP: 95/54. HR: 89. RR: 12. O2 saturation: 97% on room air. --00:15 Rajesh Oliva R.N. Care transferred and report given (to Christel RN). --01:03 Kelly Poe R.N. 01:58 01/30/2017 IV Fluids IV NS Discontinued: completed. Total amount infused: 1000 mL. IV patency established. IV site checked: no pain, redness, or swelling. IV flushed thoroughly. --01:58 Christel Gomez R.N. Patient ID band checked for patient name and birthdate: patient confirmed. Instructions provided to collect clean catch urine and patient verbalized understanding. Clean catch urine collected with return of yellow-colored clear urine; sample sent to lab for urinalysis, culture, drug screen and HCG. Specimen labeled in the presence of the patient. --01:59 Christel Gomez R.N. 02:10. ( pt threatening to leave AMA, explained to pt she needed to go through the process of being medically cleared, and then see the PAT team. pt ripped of BP cuff and O2 monitor. explained she is not able to leave. MD notified). GENERAL / NEURO / PSYCH: The patient reports anger that is mild in severity. --02:32 Christel Gomez R.N. ( Robert with PAT her for Evaluation). --04:13 Christel Gomez R.N. 04:41 01/30/2017 Site #1 removed upon discharge. Catheter intact. Manual pressure and bandage applied. --04:41 Christel Gomez R.N. Two patient identifiers checked. Call light placed in reach. Side rails up x 1. Bed placed in lowest position. Brakes of bed on. --04:42 Christel Gomez R.N. ( pt cleared for DC waiting for father to pick her up). --04:43 Christel Gomez R.N. DISPOSITION / DISCHARGE Departure time: 0455. Condition at departure: improved and stable. No learning barriers present. Discharge instructions provided and reviewed with the patient and parent. Reviewed warnings (have a family member manage your Xanax). Work note given. Patient and parent verbalized understanding. Written instructions provided in Greenlandic. The patient was discharged home and accompanied by parent. She left the Emergency Department ambulatory and via private vehicle. Parent driving. --05:03 Christel Gomez R.N. 04:55 01/30/17. BP: 101/62 taken on the left arm, while lying. HR: 69 (regular and normal rate). RR: 18 (regular and unlabored). O2 saturation: 100% on room air. Temp: deferred. Pain level now: 0/10. --05:03 Christel Gomez R.N. Locked/Released at 01/30/2017 5:03 by Christel Gomez R.N.
--- NOTE | 2017-01-30 04:40 | ED CLINICAL REPORT ---
Clinical Report - Physicians/Mid Levels [facility] [address] [place] [address] 01/29/2017 22:14 Patient: GLORIA LI Time Seen: 2230. Arrived- By private vehicle. Historian- patient. Unobtainable. HISTORY OF PRESENT ILLNESS Chief Complaint: DRUG OVERDOSE. This occurred today. Toxic symptoms present in ED with drowsiness. Single drug taken- Xanax. The patient has experienced situational problems. The symptoms are described as severe. The patient has been depressed and upset. Similar symptoms previously: None. Recent medical care: Not recently seen/assessed. REVIEW OF SYSTEMS No headache, chest pain, fever or difficulty breathing. All systems otherwise negative, except as recorded above. PAST HISTORY See nurses notes. Medications: SEROquel Oral. Xanax. LaMICtal Oral. Allergies: Penicillin. SOCIAL HISTORY Smoker- current status unknown. No alcohol use or drug use. Has social support. Has place to stay. ADDITIONAL NOTES The nursing notes have been reviewed. PHYSICAL EXAM Vital Signs: 01/29/2017 22:22 BP: 98/64. HR: 98. RR: 16. O2 saturation: 99%. Temp: 98.2 F. Pain level now: 0/10. Blood pressure normal. Oxygen saturation normal. Appearance: Alert. Oriented X3. No acute distress. (patient very sleepy. protecting airway.). Eyes: Pupils equal, round and reactive to light. No nystagmus. Extraocular movements normal. ENT: Normal ENT inspection. TM's normal. Pharynx normal. Neck: Normal inspection. Neck supple. CVS: Normal heart rate and rhythm. Heart sounds normal. Pulses normal. Respiratory: No respiratory distress. Breath sounds normal. Abdomen: Soft and nontender. No organomegaly. Skin: Skin warm and dry. Normal skin color. No rash. Normal skin turgor. Extremities: Extremities exhibit normal ROM. No lower extremity edema. Neuro: Oriented X 3. Mood/affect normal. Speech normal. Cranial nerves normal (as tested). No cerebellar findings. No motor deficit. No sensory deficit. Reflexes normal. LABS, X-RAYS, AND EKG Laboratory Tests: UA-Culture if indicated: (MISSAEL: 01/30/2017 01:53) ( [facility] 01/30/2017 02:09) Final results Test Result Flag Units (Reference) URINE COLOR YELLOW URINE APPEARANCE CLEAR URINE GLUCOSE NEGATIVE (NEGATIVE) URINE BILIRUBIN NEGATIVE (NEGATIVE) URINE KETONE NEGATIVE (NEGATIVE) URINE SPECIFIC GRAVITY <= 1.005 L (1.010-1.030) URINE PH 6.0 (5.0-8.0) URINE PROTEIN NEGATIVE (NEGATIVE) URINE UROBILINOGEN 0.2 EU/dL (0.2-1.0) URINE NITRITE NEGATIVE (NEGATIVE) URINE BLOOD TRACE-LYSED (NEGATIVE) URINE LEUK ESTERASE NEGATIVE (NEGATIVE) URINE RBC 0-1 rbc/hpf (0-1) URINE WBC 0-1 wbc/hpf (0-1) URINE EPITHELIAL CELLS 0-1 EPI/hpf (0-5) URINE BACTERIA NONE SEEN (NONE SEEN) URINE COMMENT CULT NOT INDICATED URINE CULTURES ARE SET-UP BASED ON THE FOLLOWING CRITERIA:POSITIVE NITRITEPOSITIVE LEUKOCYTE ESTERASEGREATER THAN 10 WHITE BLOOD CELLSMODERATE (2+) OR GREATER BACTERIA Urine: (MISSAEL: 01/30/2017 01:53) ( [facility] 01/30/2017 02:06) Final results Test Result Flag Units (Reference) URINE NEGATIVE Urine Drug Screen: (MISSAEL: 01/30/2017 01:53) ( [facility] 01/30/2017 02:14) Final results Test Result Flag Units (Reference) AMPHETAMINE/METHAMPHETAMINE NEGATIVE (NEGATIVE) BARBITURATE POSITIVE H (NEGATIVE) BENZODIAZEPINE POSITIVE H (NEGATIVE) CANNABINOID NEGATIVE (NEGATIVE) COCAINE NEGATIVE (NEGATIVE) ECSTASY NEGATIVE (NEGATIVE) METHADONE NEGATIVE (NEGATIVE) OPIATE NEGATIVE (NEGATIVE) The urine drug screen is a qualitative screening test fordrug overdose and abuse. All screen results should beconsidered as presumptive.Drugs screened for are as follows:BenzodiazepinesCocaineAmphetamines/MetamphetaminesTHC (Tetrahydrocannabinol)OpiatesBarbituratesEcstasyMethadonePositive results are unconfirmed. For confirmation, notifythe lab for the specimen to be sent to the reference lab.All confirmations must be performed by a differentmethodology.The ingestion of natural herbal and plant productscontaining Ephedra/Ephedra metabolites can produce in urineone or more substances capable of cross reacting withamphetamine/methamphetamine immunoassays. These testsprovide a preliminary result only. A more specificalternative chemical method must be used to obtain aconfirmed analytical result. CBC w Diff: (MISSAEL: 01/29/2017 22:40) ( [facility] 01/29/2017 22:55) Final results Test Result Flag Units (Reference) WHITE BLOOD COUNT 8.2 K/uL (4.5-11.5) RED BLOOD COUNT 4.14 M/uL (4.00-5.20) HEMOGLOBIN 12.7 gm/dL (12.0-16.0) HEMATOCRIT 38.0 % (36.0-46.0) MEAN CELL VOLUME 92 fL (80-100) MEAN CORPUSCULAR HGB 31 pg (26-34) MEAN CORPUSCULAR HGB CONC 34 g/dL (31-37) RED CELL DISTRIBUTION WIDTH 13.8 % (11.6-14.8) PLATELET COUNT 198 K/uL (150-400) LYMPH % 55.0 H % (25-40) MONO % 4.7 % (3-14) GRANULOCYTE % 40.3 L % (53-90) PT with INR: (MISSAEL: 01/29/2017 22:40) ( [facility] 01/29/2017 23:02) Final results Test Result Flag Units (Reference) INR 0.9 (0.8-1.2) Low Intensity Therapy: INR 1.5-2.0 PT range 18.5-23.1Mod.Intensity Therapy: INR 2.0-3.0 PT range 23.1-31.5High Intensity Therapy: INR 2.5-3.5 PT range 27.4-35.5High Intensity Therapy 2: INR 3.0-4.0 PT range 31.5-39.3 APTT 32 SECONDS (24-34) Salicylate Level: (MISSAEL: 01/29/2017 22:40) ( [facility] 01/29/2017 23:14) Final results Test Result Flag Units (Reference) SALICYLATE 3.6 mg/dL (2.8-20) CMP: (MISSAEL: 01/29/2017 22:40) ( [facility] 01/29/2017 23:13) Final results Test Result Flag Units (Reference) GLUCOSE 77 mg/dL (70-110) BUN 5 L mg/dL (7-18) CREATININE 0.7 mg/dL (0.6-1.3) Estimated GFR >60 mL/min Estimated GFR- >60 mL/min Note: Persistent reduction over 3 months in eGFR<60 mL/min/1.73 m2 defines CKD. Patients with eGFR values>=60 mL/min/1.73 m2 may also have CKD if evidence ofpersistent proteinuria. Additional information may be foundat www.kidney.org. SODIUM 143 mmol/L (136-145) POTASSIUM 3.5 mmol/L (3.5-5.1) CHLORIDE 107 mmol/L (98-107) CARBON DIOXIDE 26 mmol/L (21-32) CALCIUM 8.4 L mg/dL (8.5-10.1) TOTAL PROTEIN 6.8 g/dL (6.4-8.2) ALBUMIN 3.9 g/dL (3.3-5.0) BILIRUBIN, TOTAL 0.2 mg/dL (0.0-1.0) ALKALINE PHOSPHATASE 55 U/L (46-116) AST (SGOT) 11 L U/L (15-37) ALT (SGPT) 19 U/L (12-78) ACETAMINOPHEN 0.5 L ug/mL (10-30) ETHYL ALCOHOL <3 L mg/dL (3-10) . PROGRESS AND PROCEDURES Course of Care: the patient is a 36-year-old female presenting for evaluation of the Next Overdose. When Asking Patient If She Was Suicidal, Patient States That She Did Not Want to Hurt Herself Only Wanted to Go to Sleep. Patient States That She Has Been Unable to Do so for the past Several Days. The Patient States That She Needs to Get to Work. Had a Long Discussion with Patient in Regards to Patient Protocols in Regards to Overdose. The Patient That We Are Only Concerned for Her Safety. Patient Expresses Understanding of Our Concerns and Is Agreeable to the Treatment and Plan. The Patient Was Evaluated by the Crisis Counselor and Found to Not Be a Danger to Self or Others. Patient Has Been Appropriate and Goal Oriented. Patient States That She Needs to Get Back to Work Today. Patient Was Cautioned in Regards to Medications and Was Informed That Patient Should Only Use Medications As Prescribed. SHe Expressed Understanding of My Concerns and Was Agreeable to Following Those Instructions. Patient Was Not Discharged with the Medications and Was Given to a Responsible Family Member. Father Was Able to senior office support assistant sosa the Patient. Family Agreeable to Monitoring the Patient and Watching Her A Note Was Provided for Her As She Would Either Miss Work Today or Come in Late. Patient Had a Long Drive down to [place] from [place]. Discussed with Patient Workup. Emergency Department Tingling Diagnosis, Home Care, Follow-Up, and Return Precautions. All Questions Have Been Answered. The Patient Expressed Understanding of These Instructions and Was Agreeable to Them. Disposition: Discharged. Condition: good. CLINICAL IMPRESSION Intentional single drug overdose with alprazolam (acute). 01/30/2017 00:13 BP: 95/54. HR: 89. RR: 12. O2 saturation: 97%. Adjustment disorder with depressed mood (acute). Blood pressure normal. Oxygen saturation normal. INSTRUCTIONS Off work today (or will be late). (Have a family member in charge of your Xanax). Warnings: GENERAL WARNINGS: Return or contact your physician immediately if your condition worsens or changes unexpectedly, if not improving as expected, or if other problems arise. Specifically return if pain, vomiting, bleeding, breathing difficulty or fever. symptoms return. Your Current Medications: CONTINUE TAKING THE FOLLOWING MEDICATIONS: LaMICtal Oral. SEROquel Oral. Xanax*. Follow-up: Return to the emergency department as needed. Follow up with your doctor in three days. Reason for referral: recheck today's concerns. Summary of care provided to patient via paper. Screening today revealed the patient's blood pressure to be in the normal range. The patient should follow up with a primary care provider for blood pressure management. Understanding of the discharge instructions verbalized by patient. (Electronically signed by Palmer Norton Dr. 01/31/2017 5:32)
--- NOTE | 2017-01-30 04:40 | ED ORDER SUMMARY ---
..... Patient: GLORIA LI OrderSheet [facility] VisitID: [id number] [place] [address] 36y, F Registration Date/Time: 01/29/2017 ORDER SHEET Weight: 58.9 kg (stated) Allergies: Penicillin GENERAL ORDERS: Psychiatric Clinician (Continuous) (poss OD) (22:01/29/2017 Anthony Ryan) (22:31 MCook R.N.) CBC w Diff Urgent (22:01/29/2017 Anthony Ryan) (Ack 22:39 LMuller) (22:43 MCook R.N.) CMP Urgent (22:01/29/2017 Anthony Ryan) (Ack 22:39 LMuller) (22:43 MCook R.N.) UA-Culture if indicated Urgent (22:01/29/2017 Anthony Ryan) (Ack 22:39 LMuller) (1:58 CBradburn R.N.) Urine Drug Screen Urgent (22:30 01/29/2017 Anthony Ryan) (Ack 22:39 LMuller) (1:58 CBradburn R.N.) Urine Urgent (22:01/29/2017 Anthony Ryan) (Ack 22:39 LMuller) (1:58 CBradburn R.N.) PT with INR Urgent (22:01/29/2017 Anthony Ryan) (Ack 22:39 LMuller) (22:43 MCook R.N.) PTT Urgent (22:01/29/2017 Anthony Ryan) (Ack 22:39 LMuller) (22:43 MCook R.N.) Ethyl Alcohol Urgent (22:01/29/2017 Anthony Ryan) (Ack 22:39 LMuller) (22:43 MCook R.N.) Acetaminophen Level Urgent (22:01/29/2017 Anthony Ryan) (Ack 22:39 LMuller) (22:43 MCook R.N.) Salicylate Level Urgent (22:01/29/2017 Anthony Ryan) (Ack 22:39 LMuller) (22:43 MCook R.N.) Pulse oximeter (22:30 01/29/2017 Anthony Ryan) (22:31 MCook R.N.) EKG - ER Stat (22:30 01/29/2017 Anthony Ryan) (Ack 22:39 LMuller) (22:43 MCook R.N.) (22:43 LMuller) MEDICATION ORDERS: IV FLUIDS: IV NS : initial bolus 1000 mL (1000 mL/hr), then none - for X1 (NOW) (22:30 01/29/2017 Anthony Ryan) (22:48 MCook R.N.) ORDER SHEET NOTES: [Electronically signed by Christel Gomez R.N. (05:03 01/30/2017)] [Electronically signed by Palmer Norton Dr. (05:32 01/31/2017)] [Electronically locked/signed by Christel Gomez R.N. (05:03 01/30/2017)]
--- NOTE | 2017-01-30 04:40 | ED CLINICAL REPORT ---
Clinical Report - Physicians/Mid Levels [facility] [address] [place] [address] 01/29/2017 22:14 Patient: GLORIA LI Time Seen: 2230. Arrived- By private vehicle. Historian- patient. Unobtainable. HISTORY OF PRESENT ILLNESS Chief Complaint: DRUG OVERDOSE. This occurred today. Toxic symptoms present in ED with drowsiness. Single drug taken- Xanax. The patient has experienced situational problems. The symptoms are described as severe. The patient has been depressed and upset. Similar symptoms previously: None. Recent medical care: Not recently seen/assessed. REVIEW OF SYSTEMS No headache, chest pain, fever or difficulty breathing. All systems otherwise negative, except as recorded above. PAST HISTORY See nurses notes. Medications: SEROquel Oral. Xanax. LaMICtal Oral. Allergies: Penicillin. SOCIAL HISTORY Smoker- current status unknown. No alcohol use or drug use. Has social support. Has place to stay. ADDITIONAL NOTES The nursing notes have been reviewed. PHYSICAL EXAM Vital Signs: 01/29/2017 22:22 BP: 98/64. HR: 98. RR: 16. O2 saturation: 99%. Temp: 98.2 F. Pain level now: 0/10. Blood pressure normal. Oxygen saturation normal. Appearance: Alert. Oriented X3. No acute distress. (patient very sleepy. protecting airway.). Eyes: Pupils equal, round and reactive to light. No nystagmus. Extraocular movements normal. ENT: Normal ENT inspection. TM's normal. Pharynx normal. Neck: Normal inspection. Neck supple. CVS: Normal heart rate and rhythm. Heart sounds normal. Pulses normal. Respiratory: No respiratory distress. Breath sounds normal. Abdomen: Soft and nontender. No organomegaly. Skin: Skin warm and dry. Normal skin color. No rash. Normal skin turgor. Extremities: Extremities exhibit normal ROM. No lower extremity edema. Neuro: Oriented X 3. Mood/affect normal. Speech normal. Cranial nerves normal (as tested). No cerebellar findings. No motor deficit. No sensory deficit. Reflexes normal. LABS, X-RAYS, AND EKG Laboratory Tests: UA-Culture if indicated: (MISSAEL: 01/30/2017 01:53) ( [facility] 01/30/2017 02:09) Final results Test Result Flag Units (Reference) URINE COLOR YELLOW URINE APPEARANCE CLEAR URINE GLUCOSE NEGATIVE (NEGATIVE) URINE BILIRUBIN NEGATIVE (NEGATIVE) URINE KETONE NEGATIVE (NEGATIVE) URINE SPECIFIC GRAVITY <= 1.005 L (1.010-1.030) URINE PH 6.0 (5.0-8.0) URINE PROTEIN NEGATIVE (NEGATIVE) URINE UROBILINOGEN 0.2 EU/dL (0.2-1.0) URINE NITRITE NEGATIVE (NEGATIVE) URINE BLOOD TRACE-LYSED (NEGATIVE) URINE LEUK ESTERASE NEGATIVE (NEGATIVE) URINE RBC 0-1 rbc/hpf (0-1) URINE WBC 0-1 wbc/hpf (0-1) URINE EPITHELIAL CELLS 0-1 EPI/hpf (0-5) URINE BACTERIA NONE SEEN (NONE SEEN) URINE COMMENT CULT NOT INDICATED URINE CULTURES ARE SET-UP BASED ON THE FOLLOWING CRITERIA:POSITIVE NITRITEPOSITIVE LEUKOCYTE ESTERASEGREATER THAN 10 WHITE BLOOD CELLSMODERATE (2+) OR GREATER BACTERIA Urine: (MISSAEL: 01/30/2017 01:53) ( [facility] 01/30/2017 02:06) Final results Test Result Flag Units (Reference) URINE NEGATIVE Urine Drug Screen: (MISSAEL: 01/30/2017 01:53) ( [facility] 01/30/2017 02:14) Final results Test Result Flag Units (Reference) AMPHETAMINE/METHAMPHETAMINE NEGATIVE (NEGATIVE) BARBITURATE POSITIVE H (NEGATIVE) BENZODIAZEPINE POSITIVE H (NEGATIVE) CANNABINOID NEGATIVE (NEGATIVE) COCAINE NEGATIVE (NEGATIVE) ECSTASY NEGATIVE (NEGATIVE) METHADONE NEGATIVE (NEGATIVE) OPIATE NEGATIVE (NEGATIVE) The urine drug screen is a qualitative screening test fordrug overdose and abuse. All screen results should beconsidered as presumptive.Drugs screened for are as follows:BenzodiazepinesCocaineAmphetamines/MetamphetaminesTHC (Tetrahydrocannabinol)OpiatesBarbituratesEcstasyMethadonePositive results are unconfirmed. For confirmation, notifythe lab for the specimen to be sent to the reference lab.All confirmations must be performed by a differentmethodology.The ingestion of natural herbal and plant productscontaining Ephedra/Ephedra metabolites can produce in urineone or more substances capable of cross reacting withamphetamine/methamphetamine immunoassays. These testsprovide a preliminary result only. A more specificalternative chemical method must be used to obtain aconfirmed analytical result. CBC w Diff: (MISSAEL: 01/29/2017 22:40) ( [facility] 01/29/2017 22:55) Final results Test Result Flag Units (Reference) WHITE BLOOD COUNT 8.2 K/uL (4.5-11.5) RED BLOOD COUNT 4.14 M/uL (4.00-5.20) HEMOGLOBIN 12.7 gm/dL (12.0-16.0) HEMATOCRIT 38.0 % (36.0-46.0) MEAN CELL VOLUME 92 fL (80-100) MEAN CORPUSCULAR HGB 31 pg (26-34) MEAN CORPUSCULAR HGB CONC 34 g/dL (31-37) RED CELL DISTRIBUTION WIDTH 13.8 % (11.6-14.8) PLATELET COUNT 198 K/uL (150-400) LYMPH % 55.0 H % (25-40) MONO % 4.7 % (3-14) GRANULOCYTE % 40.3 L % (53-90) PT with INR: (MISSAEL: 01/29/2017 22:40) ( [facility] 01/29/2017 23:02) Final results Test Result Flag Units (Reference) INR 0.9 (0.8-1.2) Low Intensity Therapy: INR 1.5-2.0 PT range 18.5-23.1Mod.Intensity Therapy: INR 2.0-3.0 PT range 23.1-31.5High Intensity Therapy: INR 2.5-3.5 PT range 27.4-35.5High Intensity Therapy 2: INR 3.0-4.0 PT range 31.5-39.3 APTT 32 SECONDS (24-34) Salicylate Level: (MISSAEL: 01/29/2017 22:40) ( [facility] 01/29/2017 23:14) Final results Test Result Flag Units (Reference) SALICYLATE 3.6 mg/dL (2.8-20) CMP: (MISSAEL: 01/29/2017 22:40) ( [facility] 01/29/2017 23:13) Final results Test Result Flag Units (Reference) GLUCOSE 77 mg/dL (70-110) BUN 5 L mg/dL (7-18) CREATININE 0.7 mg/dL (0.6-1.3) Estimated GFR >60 mL/min Estimated GFR- >60 mL/min Note: Persistent reduction over 3 months in eGFR<60 mL/min/1.73 m2 defines CKD. Patients with eGFR values>=60 mL/min/1.73 m2 may also have CKD if evidence ofpersistent proteinuria. Additional information may be foundat www.kidney.org. SODIUM 143 mmol/L (136-145) POTASSIUM 3.5 mmol/L (3.5-5.1) CHLORIDE 107 mmol/L (98-107) CARBON DIOXIDE 26 mmol/L (21-32) CALCIUM 8.4 L mg/dL (8.5-10.1) TOTAL PROTEIN 6.8 g/dL (6.4-8.2) ALBUMIN 3.9 g/dL (3.3-5.0) BILIRUBIN, TOTAL 0.2 mg/dL (0.0-1.0) ALKALINE PHOSPHATASE 55 U/L (46-116) AST (SGOT) 11 L U/L (15-37) ALT (SGPT) 19 U/L (12-78) ACETAMINOPHEN 0.5 L ug/mL (10-30) ETHYL ALCOHOL <3 L mg/dL (3-10) . PROGRESS AND PROCEDURES Course of Care: the patient is a 36-year-old female presenting for evaluation of the Next Overdose. When Asking Patient If She Was Suicidal, Patient States That She Did Not Want to Hurt Herself Only Wanted to Go to Sleep. Patient States That She Has Been Unable to Do so for the past Several Days. The Patient States That She Needs to Get to Work. Had a Long Discussion with Patient in Regards to Patient Protocols in Regards to Overdose. The Patient That We Are Only Concerned for Her Safety. Patient Expresses Understanding of Our Concerns and Is Agreeable to the Treatment and Plan. The Patient Was Evaluated by the Crisis Counselor and Found to Not Be a Danger to Self or Others. Patient Has Been Appropriate and Goal Oriented. Patient States That She Needs to Get Back to Work Today. Patient Was Cautioned in Regards to Medications and Was Informed That Patient Should Only Use Medications As Prescribed. SHe Expressed Understanding of My Concerns and Was Agreeable to Following Those Instructions. Patient Was Not Discharged with the Medications and Was Given to a Responsible Family Member. Father Was Able to follow up specialist the Patient. Family Agreeable to Monitoring the Patient and Watching Her A Note Was Provided for Her As She Would Either Miss Work Today or Come in Late. Patient Had a Long Drive down to [place] from [place]. Discussed with Patient Workup. Emergency Department Tingling Diagnosis, Home Care, Follow-Up, and Return Precautions. All Questions Have Been Answered. The Patient Expressed Understanding of These Instructions and Was Agreeable to Them. Disposition: Discharged. Condition: good. CLINICAL IMPRESSION Intentional single drug overdose with alprazolam (acute). 01/30/2017 00:13 BP: 95/54. HR: 89. RR: 12. O2 saturation: 97%. Adjustment disorder with depressed mood (acute). Blood pressure normal. Oxygen saturation normal. INSTRUCTIONS Off work today (or will be late). (Have a family member in charge of your Xanax). Warnings: GENERAL WARNINGS: Return or contact your physician immediately if your condition worsens or changes unexpectedly, if not improving as expected, or if other problems arise. Specifically return if pain, vomiting, bleeding, breathing difficulty or fever. symptoms return. Your Current Medications: CONTINUE TAKING THE FOLLOWING MEDICATIONS: LaMICtal Oral. SEROquel Oral. Xanax*. Follow-up: Return to the emergency department as needed. Follow up with your doctor in three days. Reason for referral: recheck today's concerns. Summary of care provided to patient via paper. Screening today revealed the patient's blood pressure to be in the normal range. The patient should follow up with a primary care provider for blood pressure management. Understanding of the discharge instructions verbalized by patient. (Electronically signed by Palmer Norton Dr. 01/31/2017 5:32)
--- NOTE | 2017-01-31 05:32 | ED MAR SUMMARY ---
..... Medication Administration Record [facility] [address] [place] [address] Patient: GLORIA LI Visit ID: [id number] 36y, F Weight: 58.9 kg Height/Length: 63 in BMI: 23 ALLERGIES: Penicillin Start 22:48 01/29/2017 Rajesh Oliva RJuliaNJulia, Stop 01:58 01/30/2017 Christel Gomez R.N. Medication Administered: IV NS (SALINE), Dose: IV Fluids, Bolus: 1000 mL wide open, Dispensed: 1000 mL bag, Site: #1 right hand. Medication Ordered: IV NS : initial bolus 1000 mL (1000 mL/hr), then none - for X1 (NOW).
--- NOTE | 2017-01-31 05:32 | ED MAR SUMMARY ---
..... Medication Administration Record [facility] [address] [place] [address] Patient: GLORIA LI Visit ID: [id number] 36y, F Weight: 58.9 kg Height/Length: 63 in BMI: 23 ALLERGIES: Penicillin Start 22:48 01/29/2017 Rajesh Oliva RJuliaNJulia, Stop 01:58 01/30/2017 Christel Gomez R.N. Medication Administered: IV NS (SALINE), Dose: IV Fluids, Bolus: 1000 mL wide open, Dispensed: 1000 mL bag, Site: #1 right hand. Medication Ordered: IV NS : initial bolus 1000 mL (1000 mL/hr), then none - for X1 (NOW).
--- NOTE | 2017-01-31 05:32 | ED DISCHARGE INSTRUCTIONS ---
Patient: GLORIA LI General Instructions [facility] VisitID: [id number] [place] [address] 36y, F Registration Date/Time: 01/29/2017 Intentional single drug overdose with alprazolam (acute). 01/30/2017 00:13 BP: 95/54. HR: 89. RR: 12. O2 saturation: 97%. Adjustment disorder with depressed mood (acute). Blood pressure normal. Oxygen saturation normal. INSTRUCTIONS Off work today (or will be late). (Have a family member in charge of your Xanax). Warnings: GENERAL WARNINGS: Return or contact your physician immediately if your condition worsens or changes unexpectedly, if not improving as expected, or if other problems arise. Specifically return if pain, vomiting, bleeding, breathing difficulty or fever. symptoms return. Your Current Medications: CONTINUE TAKING THE FOLLOWING MEDICATIONS: LaMICtal Oral. SEROquel Oral. Xanax*. Follow-up: Return to the emergency department as needed. Follow up with your doctor in three days. Reason for referral: recheck today's concerns. Summary of care provided to patient via paper. Screening today revealed the patient's blood pressure to be in the normal range. The patient should follow up with a primary care provider for blood pressure management. Understanding of the discharge instructions verbalized by patient. ADDITIONAL INFORMATION Overdose, Intentional (Adult: Psych Evaluation) You have been evaluated and treated for taking a drug or chemical product with the intent to harm yourself. There is no sign of a toxic effect at this time. It is not likely that any new symptoms will appear. As a safeguard, watch for new symptoms during the next 24 hours (see below). The exact symptom will depend on the type of drug or chemical taken. An intentional overdose is likely to be a sign that you are depressed, or that you are very angry with yourself or someone else. In order to reduce the risk of harming yourself, we will arrange for you to have a psychiatric evaluation. Home Care: If LIQUID CHARCOAL was given to neutralize what was swallowed, it will cause a black color to the stools for 1-2 days. Usually, a laxative (sorbitol) is given with charcoal to speed the removal of any toxins from the intestinal tract. This may cause diarrhea for up to 24 hours. If no laxative was given with charcoal, you may get constipated. If this occurs, you may take an [id number] laxative such as Dulcolax pills or suppository. Follow Up with your doctor if all symptoms do not resolve within 24 hours or if constipation is not relieved by one or two doses of laxatives. If you are being discharged for immediate evaluation at a psychiatric hospital or clinic on a voluntary basis, you must go directly there with a responsible adult. If you have been placed on a legal 72 hour psychiatric hold, a ride to a psychiatric facility will be arranged for you. Get Prompt Medical Attention if any of the following occur: Excess drowsiness or inability to be awakened Rapid heart beat, you feel shaky, or you have a seizure Fast breathing (over 25 breaths/minute) or slow breathing (less than 8 breaths/minute) Feeling shortness of breath Fever of 100.4F (38C) or higher, or as directed by your healthcare provider Vomiting or diarrhea for more than 24 hours Blood in stools or vomit (black or red color) Chest or abdominal pain Dizziness, weakness or fainting Thoughts of harming yourself again Adjustment Disorder An adjustment disorder is a condition that results from having a hard time coping with the normal stresses of life. You may feel you have too much to do and cant get it all done. These feelings may be triggered by divorce, job loss, someone you know dying, or by a positive event like getting a new job or getting . These feelings may interfere with your relationships at home and at work. With this condition, it is common to feel sad, guilty, hopeless and restless. These feelings may continue for weeks or months. It can be helpful to identify what is causing the additional stress and takes steps to get extra support. If new stressful events do not occur, it is likely that you will start feeling better within six months. Home Care: If you have been given a prescription for medicine, take it as directed. It helps to talk about your feelings and thoughts with family or friends that understand and support you. Follow Up with your doctor or therapist as advised by our staff. Let them know if this condition lasts more than six months without sign of improvement. For more information, contact the [employer] [place] [employer]ness at 489-655-9773 or visit www.cathleen.org. Get Prompt Medical Attention if any of the following occur: Worsening depression or anxiety Feeling out of control Thoughts of harming yourself or another Being unable to care for yourself You have been given the following additional information: Overdose, Intentional (Adult) Adjustment Disorder Off work today (or will be late). (Electronically signed by Palmer Norton Dr. 01/31/2017 5:32)
--- NOTE | 2017-01-31 05:32 | ED MED RECONCILIATION SUMMARY ---
Patient: GLORIA LI Medication Reconciliation Report [facility] VisitID: [id number] [address] [place] [address] 36y, F Registration Date/Time: 01/29/2017 Weight: 58.9 kg Height/Length: 63 in. BMI: 23.0 ALLERGIES: Penicillin The patient's Home Medications are listed below: CONTINUE TAKING THE FOLLOWING MEDICATIONS: LaMICtal Oral SEROquel Oral Xanax The source(s) of the original Home Medication information: Not obtained. The following Medications were given to the patient in the Emergency Department: IV NS IV Fluids bolus 1000 mL wide open, administered: 01/29/2017 10:48:00 PM The following Medications were prescribed to the patient: None.
--- NOTE | 2017-01-31 05:32 | ED MED RECONCILIATION SUMMARY ---
Patient: GLORIA LI Medication Reconciliation Report [facility] VisitID: [id number] [address] [place] [address] 36y, F Registration Date/Time: 01/29/2017 Weight: 58.9 kg Height/Length: 63 in. BMI: 23.0 ALLERGIES: Penicillin The patient's Home Medications are listed below: CONTINUE TAKING THE FOLLOWING MEDICATIONS: LaMICtal Oral SEROquel Oral Xanax The source(s) of the original Home Medication information: Not obtained. The following Medications were given to the patient in the Emergency Department: IV NS IV Fluids bolus 1000 mL wide open, administered: 01/29/2017 10:48:00 PM The following Medications were prescribed to the patient: None.
== END 2017-01-30 04:55 | disposition home or self-care (01) ==
LOC: ED SRH 22:14
DX: F43.21 Adjustment disorder with depressed mood (principal); Z88.0 Allergy status to penicillin
CPT/HCPCS: 90004; 90100; 92010; 92760; 92761; 92762; 92763; 92764; 92765; 92766; 92767; 92780; 93070; 94001; 94060; 95059; 97000